=== PATIENT | male | born 1945 | race Caucasian/White ===

== ENCOUNTER 2017-03-11 14:46 | Inpatient (IN) | payer OTHER, MEDICARE ==
[~2017-03-11] VITALS: Ht 177.8 cm; Wt 108.0 kg
--- NOTE | ~2017-03-11 | EKG ---
[address] [address] ELECTROCARDIOGRAM REPORT Name: SRINIVASAN MEADFOREIGN Santos Room #: 211-P ADM IN M.R.#: [id number] Admission: 03/11/17 Attend Phys: Magdalena Vergara MD Discharge: Date of : 41 Report #: [id number] THIS REPORT FOR: //name// [facility] ED Test Date: 2017-03-11 Test Time: 14:46:31 Pat Name: NURYS MEAD Department: Room: 211 Gender: M Optometric Technician: JAVI : 1945 Requested By: Nikki Jimenez Order Number: [id number] MD: Carlos Eduardo Casiano Measurements Intervals [place] Rate: 121 P: HI: QRS: -54 QRSD: 92 T: 27 QT: 344 QTc: 488 Interpretive Statements Atrial fibrillation Abnormal R-wave progression, late transition Possible Inferior infarct, old No previous ECG available for comparison Electronically Signed On 03-12-2017 8:49:18 CDT by Carlos Eduardo Casiano [email or web address] <ELECTRONICALLY SIGNED> By: Carlos Eduardo Casiano MD, [facility] 03/12/17 0849 1446 1446 Carlos Eduardo Casiano MD, [facility] /EPI
--- NOTE | ~2017-03-11 | H ---
[facility] [place] [address] HISTORY AND PHYSICAL Name: NURYS MEAD Room #: 211-P [facility] IN ..#: [id number] Admission: 03/11/17 Attend Phys: Magdalena Vergara MD Discharge: 03/12/17 Date of : 41 Report #: [id number] THIS REPORT FOR: //name// CC: Sophy Vergara DATE OF SERVICE: 03/11/2017 CHIEF COMPLAINT: Shortness of breath. HISTORY OF PRESENT ILLNESS: The patient is a 72-year-old healthy man with no medical problems. He went to the clinic today to donate blood, where examination revealed irregular heartbeat. The patient was sent here for further evaluation. He was found to be in atrial fibrillation. The patient denies prior cardiac history. He denies palpitations. He states that he noticed increased tiredness lately. He denies chest pains. In the Emergency Room, the patient's evaluation showed atrial fibrillation. His electrolytes were normal. Coagulation profile was normal. CBC and TSH were also in the normal range. PAST MEDICAL HISTORY: None. MEDICATIONS: None. FAMILY HISTORY: Reviewed and not pertinent to the patient's current condition. SOCIAL HISTORY: The patient does not smoke cigarettes and does not drink alcohol. REVIEW OF SYSTEMS: As above in HPI section. All others negative. PHYSICAL EXAMINATION: GENERAL: The patient is a healthy-looking elderly man who looks younger than his actual age. VITAL SIGNS: Blood pressure is 155/91, from 171/68. Heart rate is in 90s, irregularly irregular. Earlier heart rate was 130. Respiration is 20, temperature is 97.6, oxygen saturation is 96-97%. HEENT: Pupils are equal. Eye movements are normal. Sclerae are anicteric. NECK: Supple. Thyromegaly is not palpated. The patient has no JVD. RESPIRATORY: Chest moves symmetrically with breathing. LUNGS: Clear to auscultation bilaterally. CARDIOVASCULAR: The patient has irregularly irregular heart rate. He has no murmurs, gallops or rubs. GASTROINTESTINAL: Abdomen is soft, nondistended and nontender. Bowel sounds are present. The patient has no hepatomegaly or splenomegaly. [address] [address] HISTORY AND PHYSICAL Name: NURYS MEAD Room #: [address] [place] [address]#: [id number] Admission: 03/11/17 Attend Phys: Magdalena Vergara MD Discharge: 03/12/17 Date of : 41 Report #: [id number] MUSCULOSKELETAL: The patient has no edema, cyanosis or clubbing. His range of motion is normal. NEUROLOGIC: The patient is alert and oriented x 3. His examination is nonfocal. SKIN: The patient does not have acute skin lesions. Skin is dry and warm. LABORATORY DATA: Basic metabolic profile is normal. CBC is normal. TSH is normal. Urinalysis is normal. Chest x-ray is negative for acute findings. EKG shows atrial fibrillation. ASSESSMENT AND PLAN: 1. Atrial fibrillation, new onset, and now rate controlled after the patient received IV metoprolol. I had detailed conversation with the patient regarding atrial fibrillation. He will be admitted to the hospital on telemetry unit. Metoprolol will be continued by mouth, as it is controlling heart rate. The patient will be started on anticoagulation. We will obtain cardiac echo in the morning, and we will consult monkey breeder. We are checking D-dimers. If elevated, the patient will be further evaluated with CT angiography of the chest to rule out PE. 2. Hypertension. The patient denies history of hypertension. Blood pressure will be monitored closely. 3. DVT prophylaxis. As noted, the patient will be started on therapeutic dose of anticoagulation with Lovenox until further instructed by monkey breeder. <ELECTRONICALLY SIGNED> By: Magdalena Vergara MD 03/16/17 2227 1740 1822 Magdalena Vergara MD /nt
--- NOTE | ~2017-03-11 | 2DMMODE ---
[address] [place] [address] [facility] [place] [address] 2 D/M-MODE ECHOCARDIOGRAM Name: ALYCENURYS L Room #: 211-P [facility] IN .R.#: [id number] Admission: 03/11/17 Attend Phys: Magdalena Vergara Discharge: Date of : 41 Date of Service: 03/12/17 1306 Report #: [id number] THIS REPORT FOR: //name// APPROVED REPORT Study performed: 03/12/2017 08:39:37 EXAM: Comprehensive 2D, Doppler, and color-flow Echocardiogram Patient Location: Bedside Room #: 211 Blood Pressure: 147/83 mmHg HR: 61 bpm Other Information Study Quality: Adequate Indications Dyspnea Atrial Fibrillation Hypertension/HDD 2D Dimensions RVDd: 40.41 mm LVEF(%): 55.29 (>50%) IVSd: 9.16 (7-11mm) LVOT Diam: 22.03 (18-24mm) LVDd: 56.90 mm PWd: 10.29 (7-11mm) Ascending Aorta: 30.85 mm LVDs: 40.30 (25-40mm) IVC: 25.00 mm Aortic Root: 32.32 mm Arauz's LVEF: 55.29 % Volumes Left Atrial Volume (Systole) Single Plane 4CH: 50.09 mL Single Plane 2CH: 49.87 mL LA ESV Index: 26.00 mL/m2 Aortic Valve AoV Peak Vinicius.: 1.17 m/s AO Peak Gr.: 5.44 mmHg LV Max P.58 mmHg LV Max: 0.95 m/s Mitral Valve E/A Ratio: 1.3 MV Decel. Time: 200.96 ms [facility] [address] [place] [address] 2 D/M-MODE ECHOCARDIOGRAM Name: NURYS MEAD Danielle Room #: [address] [place] [address]#: [id number] Admission: 03/11/17 Attend Phys: Magdalena Vergara Discharge: Date of : 41 Date of Service: 03/12/17 1306 Report #: [id number] E Max Vinicius.: 0.84 m/s MV A Vinicius.: 0.66 m/s MV PHT: 58.28 ms Pulmonary Valve PV Peak Vinicius.: 1.21 m/s PV Peak Gr.: 5.86 mmHg Pulmonary Vein P Vein S: 39.9 m/s P Vein D: 34.6 m/s P Vein A Dur.: 23.1 m/s PVa Duration: 92 Tricuspid Valve TR Peak Vinicius.: 2.34 m/s RAP Estimate: 10.00 mmHg TR Peak Gr.: 21.87 mmHg Left Ventricle Left ventricle is borderline dilated. There is normal LV segmental wall motion. There is normal left ventricular wall thickness. The left ventricular systolic function is normal. The left ventricular ejection fraction is within the normal range. LVEF is 55-60%. The left ventricular diastolic function is normal. Right Ventricle The right ventricle is normal size. The right ventricular systolic function is normal. Atria The left atrium size is normal. The right atrium size is normal. Aortic Valve Aortic valve is calcified. Mild aortic regurgitation. There is no aortic valvular stenosis. Mitral Valve The mitral valve is normal in structure. Mild mitral regurgitation. No evidence of mitral valve stenosis. Tricuspid Valve The tricuspid valve is normal in structure. There is mild tricuspid regurgitation. The right atrial pressure is estimated at 10 mmHg. There is no pulmonary hypertension. The estimated PAP was 32 [place] [address] 2 D/M-MODE ECHOCARDIOGRAM Name: NURYS MEAD Danielle Room #: 211-P [facility] IN ..#: [id number] Admission: 03/11/17 Attend Phys: Magdalena Vergara Discharge: Date of : 41 Date of Service: 03/12/17 1306 Report #: [id number] The pulmonary valve is normal in structure. There is no pulmonic valvular regurgitation. Great Vessels The aortic root is normal in size. IVC is dilated and collapses >50% with inspiration. Pericardium There is no pericardial effusion. <Conclusion> The left ventricular systolic function is normal. There is normal LV segmental wall motion. LVEF 55-60%. The left ventricular diastolic function is normal. Aortic valve is calcified. No stenosis. Mild aortic regurgitation. The mitral valve is normal in structure. Mild mitral regurgitation. Pulmonary artery pressure of 25mmHg. There is no pericardial effusion. <ELECTRONICALLY SIGNED> By: Carlos Eduardo Casiano MD, [facility] 03/12/17 1306 1306 1306 Carlos Eduardo Casiano MD, [facility] /INF
[2017-03-11 14:46] VITALS: BP 171/65
[2017-03-11 15:17] LABS: ABSOLUTE NEUTROPHILS 3.8 thou/uL (1.4-8.2); BASOPHILS 1.2 % (0.0-2.0); EOSINOPHILS 4.5 % (0.0-3.0); HEMATOCRIT 49.7 % (42.0-52.0); HEMOGLOBIN 16.8 gm/dL (14.0-18.0); LYMPHOCYTES 32.9 % (24.0-44.0); MCH 30.9 pg (26.0-34.0); MCHC 33.7 g/dL (28.0-37.0); MCV 91.7 fL (80.0-100.0); MONOCYTES 11.2 % (1.0-8.0); PLATELET COUNT 225 thou/uL (150-400); POLYS 50.2 % (36.0-66.0); RBC 5.42 mil/uL (4.50-6.00); RDW 14.8 % (10.5-14.5); WBC 7.6 thou/uL (4.0-11.0)
[2017-03-11 15:21] LABS: CALCIUM 8.2 mg/dL (8.5-10.1); CREATININE 0.9 mg/dL (0.7-1.3); POTASSIUM 4.2 mmol/L (3.5-5.1)
[2017-03-11 15:22] LABS: MANUAL DIFF NO
[2017-03-11 15:43] LABS: APTT 26.3 Seconds (24.5-32.8); PROTIME 10.8 Seconds (9.3-11.4)
[2017-03-11 16:20] LABS: URINE BILIRUBIN NEGATIVE (Negative); URINE BLOOD NEGATIVE (Negative); URINE COLOR YELLOW; URINE GLUCOSE-RANDOM* NEGATIVE (Negative); URINE KETONES NEGATIVE (Negative); URINE LEUKOCYTES-REFLEX NEGATIVE (Negative); URINE PROTEIN (DIPSTICK) NEGATIVE (Negative); URINE UROBILINOGEN 0.2 E.U./dl (0.2-1.0)
[2017-03-11 17:52] VITALS: BP 154/97
[2017-03-11 20:13] VITALS: BP 135/82
[2017-03-11 23:39] VITALS: BP 130/77
[2017-03-12 04:57] VITALS: BP 129/74
[2017-03-12 07:20] VITALS: BP 147/83
[2017-03-12] MEDS ORDERED: PRADAXA150 MG PO (09:21)
[2017-03-12] MEDS ORDERED: TOPROL XL25 MG PO (09:21)
[2017-03-12 11:24] VITALS: BP 140/74
[2017-03-12 12:05] VITALS: BP 140/74
== END 2017-03-12 13:30 | disposition home or self-care (01) | DRG 310 ==
LOC: ER 14:46 → EROBS 16:42 → 2N 16:42
PROVIDERS: Emergency Medicine
DX: I48.91 Unspecified atrial fibrillation (principal); I10 Essential (primary) hypertension; Z90.49 Acquired absence of other specified parts of digestive tract; Z87.442 Personal history of urinary calculi; Z87.891 Personal history of nicotine dependence
CPT/HCPCS: 10081

== ENCOUNTER 2017-04-22 09:27 | Inpatient (IN) | payer OTHER, MEDICARE ==
[2017-04-22] VITALS (16 sets, daily range): BP systolic 97–132; BP diastolic 46–86
[~2017-04-22] VITALS: Ht 177.8 cm; Wt 104.4 kg
--- NOTE | ~2017-04-22 | EKG ---
[address] [address] ELECTROCARDIOGRAM REPORT Name: ALYCE,NURYS Santos Room #: 247-P ADM IN M.R.#: [id number] Admission: 04/22/17 Attend Phys: Abel Zarate Discharge: Date of : 41 Report #: [id number] THIS REPORT FOR: //name// [facility] Test Date: 2017-04-23 Test Time: 04:53:30 Pat Name: NURYS MEAD Department: Room: 247 P Gender: M Paper Reeler: [email or web address] : 1945 Requested By: Abel Zarate Order Number: [id number] MD: Rocael Vitale Measurements Intervals [place] Rate: 160 P: FL: QRS: 65 QRSD: 100 T: 5 QT: 303 QTc: 495 Interpretive Statements Atrial fibrillation with rapid V-rate Extensive anterior infarct, old Compared to ECG 04/22/2017 19:38:50 Sinus rhythm no longer present Myocardial infarct finding still present Electronically Signed On 04-23-2017 20:42:36 CDT by Rocael Vitale [email or web address] <ELECTRONICALLY SIGNED> By: Rocael Vitale MD 04/23/17 2042 0453 0453 Rocael Vitale MD /EPI
--- NOTE | ~2017-04-22 | 2DMMODE ---
[facility] [address] [facility] [facility] [place] [address] 2 D/M-MODE ECHOCARDIOGRAM Name: NURYS MEAD Room #: 247-P [facility] IN ..#: [id number] Admission: 04/22/17 Attend Phys: Abel Oneill Discharge: Date of : 41 Date of Service: 04/25/17 1613 Report #: [id number] THIS REPORT FOR: //name// APPROVED REPORT Study performed: 04/25/2017 11:59:31 EXAM: Comprehensive 2D, Doppler, and color-flow Echocardiogram Patient Location: Bedside Room #: 247 Other Information Study Quality: Adequate Indications Atrial Fibrillation CAD Hypertension/HDD 2D Dimensions RVDd: 40.13 mm LVEF(%): 47.86 (>50%) IVSd: 14.01 (7-11mm) LVOT Diam: 19.88 (18-24mm) LVDd: 45.37 mm PWd: 13.20 (7-11mm) Ascending Ao: 33.07 (22-36mm) LVDs: 34.50 (25-40mm) Aortic Root: 34.34 mm Arauz's LVEF: 47.86 % Volumes Left Atrial Volume (Systole) Single Plane 4CH: 52.03 mL Single Plane 2CH: 35.77 mL LA ESV Index: 22.00 mL/m2 Aortic Valve AoV Peak Vinicius.: 1.33 m/s AO Peak Gr.: 7.03 mmHg LVOT Max P.83 mmHg LVOT Max V: 0.98 m/s JANINE Vmax: 2.29 cm2 Mitral Valve MV Decel. Time: 124.84 ms MV E Max Vinicius.: 0.95 m/s Pulmonary Valve [facility] [address] [address] 2 D/M-MODE ECHOCARDIOGRAM Name: NURYS MEAD Room #: [address] [place] [address] IN [facility]#: [id number] Admission: 04/22/17 Attend Phys: Abel Oneill Discharge: Date of : 41 Date of Service: 04/25/17 1613 Report #: [id number] PV Peak Vinicius.: 1.00 m/s PV Peak Gr.: 4.00 mmHg Tricuspid Valve TR Peak Vinicius.: 2.75 m/s RAP Estimate: 10.00 mmHg TR Peak Gr.: 30.15 mmHg Left Ventricle The left ventricle is normal size. Hypokinesis involving septum and anteroapex. Mild concentric left ventricular hypertrophy. Left ventricular systolic function is moderately decreased. LVEF is 40%. This study is not technically sufficient to allow evaluation of the LV diastolic function due to atrial fibrillation. Right Ventricle Right ventricle is borderline dilated. Right ventricle is mildly hypokinetic. Atria The left atrium size is normal. The right atrium size is normal. Aortic Valve The aortic valve is mildly sclerotic Mild aortic regurgitation. There is no aortic valvular stenosis. Mitral Valve Mild-moderate mitral annular calcification Trace to mild mitral regurgitation. No evidence of mitral valve stenosis. Tricuspid Valve The tricuspid valve is normal in structure. Mild to moderate tricuspid regurgitation. Pulmonic Valve Pulmonic valve is not well visualized. Great Vessels The aortic root is normal in size. IVC is not visualized due to post surgical dressings. Pericardium There is no pericardial effusion. <Conclusion> Left ventricular systolic function is moderately decreased. [facility] [address] [place] [address] 2 D/M-MODE ECHOCARDIOGRAM Name: NURYS MEAD Danielle Room #: 247-P [facility] IN M.R.#: [id number] Admission: 04/22/17 Attend Phys: Abel Oneill Discharge: Date of : 41 Date of Service: 04/25/171612 Report #: [id number] Hypokinesis involving septum and anteroapex. LVEF 40%. The aortic valve is mildly sclerotic. No stenosis. mild aortic regurgitation. Mild-moderate mitral annular calcification Trace to mild mitral regurgitation. Pulmonary artery pressure of 35mmHg There is no pericardial effusion. <ELECTRONICALLY SIGNED> By: Carlos Eduardo Casiano MD, [facility] 04/25/171612 12 1613 Carlos Eduardo Casiano MD, [facility]ACC /INF
--- NOTE | ~2017-04-22 | HC ---
[facility] [place] [address] CONSULTATION Name: NURYS MEAD Room #: 211-P [facility] IN M.R.#: [id number] Admission: 04/22/17 Attend Phys: Abel Zarate Discharge: Date of : 41 Report #: [id number] THIS REPORT FOR: //name// CC: Abel Chua DATE OF SERVICE: 04/24/2017 PULMONARY CONSULTATION REASON FOR PULMONARY CONSULTATION: Hypoxemia. CHIEF COMPLAINT: Chest pain. HISTORY OF PRESENT ILLNESS: Our group was asked to see the patient in consultation while hospitalized at [facility]. A pleasant 72-year-old male without any past pulmonary history, admitted for evaluation of coronary artery disease, who was unable to stent the LAD lesion and underwent single-vessel coronary artery bypass grafting. Postoperatively, he has had some difficulty with ongoing hypoxemia and shortness of breath and some difficulty getting up and out of bed. No significant cough or sputum production at this time. Denies any illness prior to this admission. He is having some difficulty even pulling 1000 mL on his incentive spirometry. ALLERGIES: None known. PAST MEDICAL HISTORY: 1. Recently diagnosed atrial fibrillation. 2. Coronary artery disease. 3. Hypertension. 4. Hyperlipidemia. 5. History of nephrolithiasis. SOCIAL HISTORY: Currently, nonsmoker. No alcohol consumption. Retired. FAMILY HISTORY: Negative for significant pulmonary disease. REVIEW OF SYSTEMS: Difficult to obtain due to somnolence. GENERAL: Denies any fevers, chills, sweats or change in weight. ENT: No upper respiratory congestion, rhinorrhea or dysphagia. CARDIOVASCULAR: As described in the HPI. GASTROINTESTINAL: No nausea or vomiting. GENITOURINARY: No dysuria, no frequency. INTEGUMENT: Denies any rash. MUSCULOSKELETAL: Some generalized weakness. No significant arthritis [facility] [address] [place] [address] CONSULTATION Name: ALYCENURYS L Room #: 211-P [facility]#: [id number] Admission: 04/22/17 Attend Phys: Abel Zarate Discharge: Date of : 41 Report #: [id number] complaints. PHYSICAL EXAMINATION: VITAL SIGNS: Afebrile. Pulse 80s, respiratory rate 20, blood pressure 135/67 and oxygen saturation 92% on 50% face mask and 6 liters nasal cannula. GENERAL: This is a pleasant elderly male, in no distress, appears to be resting comfortably. HEENT: Clear oropharynx. NECK: Supple. No lymphadenopathy. Right IJ triple-lumen introducer noted. LUNGS: Markedly diminished in the bases, with some inspiratory crackles. No wheezes. CARDIOVASCULAR: Heart is regular. No murmurs noted. ABDOMEN: Soft, nontender. No masses. Mediastinal tubes noted to be in place. EXTREMITIES: With only trace edema. LABORATORY DATA: White blood cell count was 21,000, hemoglobin 10, hematocrit 29 and platelet count 116,000. Sodium is 136, potassium 4.4, chloride 104, bicarbonate 28, BUN 30, creatinine 1.7 and glucose 143. IMPRESSION: 1. Status post single-vessel coronary artery bypass grafting. 2. Postoperative hypoxemic respiratory failure, somewhat expected of a low outer portion, though I would expect this postoperatively. Chest radiograph suggest some atelectasis and may be some mild pulmonary edema. 3. Atrial fibrillation. 4. History of hypertension. SUGGESTIONS: 1. Encourage incentive spirometry. 2. EzPAP. 3. Follow up chest radiographs. 4. Some trial of diuresis. 5. We will follow up chest x-rays. 6. Titrate FiO2. 7. Bronchodilators. 8. Ambulate as tolerated, encourage physical and occupational therapy. 9. Additional recommendations to follow. Thank you for requesting our suggestions. <ELECTRONICALLY SIGNED> By: Fabiano Shanks MD 04/30/17 1133 1609 1133 Fabiano Shanks MD /nt
--- NOTE | ~2017-04-22 | HC ---
[facility] [place] [address] CONSULTATION Name: NURYS MEAD Room #: 211-P [facility] IN ..#: [id number] Admission: 04/22/17 Attend Phys: Abel Zarate Discharge: 05/01/17 Date of : 41 Report #: [id number] THIS REPORT FOR: //name// CC: Abel Gradyie Toma DATE OF SERVICE: 04/28/2017 HISTORY OF PRESENT ILLNESS: The patient is a 72-year-old white male who was admitted with chest pain, who was noted to have coronary artery disease and underwent emergent coronary artery bypass grafting x 1 with HA to LAD on 04/22/2017. Postoperatively, he has had problems with hypoxic respiratory failure. He has atrial fibrillation, ischemic cardiomyopathy, pneumonia. He is continuing in the intensive care unit. He is still on high dose oxygen needing 10 liters currently including rest and with exercise in therapy. We are seeing him in rehabilitation medicine consultation. PAST MEDICAL HISTORY: Includes hypertension. He has coronary artery disease, hyperlipidemia, history of nephrolithiasis. MEDICATIONS: Please see the full medication listing. FAMILY HISTORY: Noncontributory. SOCIAL HISTORY: House, alone. Did not utilize gait aids, 2 steps in, was premorbidly independent without ADLs. There are 10-12 steps with laundry. ALLERGIES: No known drug allergies. HABITS: Nonsmoker, no history of ETOH abuse. REVIEW OF SYSTEMS: No current complaints of chest pain, shortness of breath or abdominal discomfort. He does become short of breath with limited activity. He has significant complaints of decreased endurance. No focal extremity pain complaints. Premorbidly had been very active, doing yardwork, going to baseball games, etc. PHYSICAL EXAMINATION: He is a 72-year-old white male seen in the Intensive Care Unit. Last recorded temperature 98.2, pulse 85, respirations 19, blood pressure 136/91. He is sleepy, but easily arouses. Facies appeared symmetric. Nasal prong O2 at 10 liters. Midline sternal incision, which is dressed. Functional range of motion of the upper extremities with gentle testing appearing to be at least grade 4-/5. DTRs are trace to 1. Lower extremities, no focal calf swelling, trace to 1 lower extremity distal edema. Tone appeared to be intact. Strength is a grade 3+/5. Transfers were contact guard. He did ambulate [address] [address] CONSULTATION Name: SRINIVASAN MEADFOREIGN Santos Room #: 211-P [facility] IN [facility]#: [id number] Admission: 04/22/17 Attend Phys: Abel Zarate Discharge: 05/01/17 Date of : 41 Report #: [id number] feet min assist with a front-wheeled walker. ASSESSMENT: A 72-year-old white male with the following problem list: 1. Medical complexity with generalized debilitation. 2. Pulmonary rehabilitation. 3. Chest pain with coronary artery disease status post emergent coronary artery bypass grafting x 1. 4. Atrial fibrillation. 5. Ischemic cardiomyopathy. 6. Pulmonary infiltrates with pneumonia, gradually improving. 7. Atrial fibrillation with conversion to normal sinus rhythm. 8. Hyperlipidemia. 9. Hypertension. 10. History of kidney stones. PLAN: He certainly may benefit from an acute in-hospital inpatient rehabilitation stay. At this point, we are going to follow along with you regarding his rehab therapy needs. Thank you for asking us to assist in this patient's care. <ELECTRONICALLY SIGNED> By: Adolfo Wise MD 05/05/17 1518 1642 15 Adolfo Wise MD /nt
--- NOTE | ~2017-04-22 | EKG ---
[address] [address] ELECTROCARDIOGRAM REPORT Name: NURYS MEAD Room #: 247-P ADM IN M.R.#: [id number] Admission: 04/22/17 Attend Phys: Abel Zarate Discharge: Date of : 41 Report #: [id number] THIS REPORT FOR: //name// [facility] Test Date: 2017-04-22 Test Time: 10:09:59 Pat Name: NURYS MEAD Department: Room: [facility] Gender: M Supervisor Transferring And Boxing: Marcus MAHAJAN : 1945 Requested By: Abel Zarate Order Number: [id number] MD: Carlos Eduardo Casiano Measurements Intervals [place] Rate: 59 P: 62 ME: 181 QRS: -40 QRSD: 99 T: 28 QT: 465 QTc: 461 Interpretive Statements Sinus rhythm Normal tracing Compared to ECG 03/11/2017 14:46:31 Atrial fibrillation no longer present Electronically Signed On 04-23-2017 7:13:48 CDT by Carlos Eduardo Casiano [email or web address] <ELECTRONICALLY SIGNED> By: Carlos Eduardo Casiano MD, [facility] 04/23/17 0713 1009 1009 Carlos Eduardo Casiano MD, [facility] /EPI
--- NOTE | ~2017-04-22 | EKG ---
[address] [address] ELECTROCARDIOGRAM REPORT Name: NURYS MEAD Room #: 247- ADM IN M.R.#: [id number] Admission: 04/22/17 Attend Phys: Abel Zarate Discharge: Date of : 41 Report #: [id number] THIS REPORT FOR: //name// [facility] Test Date: 2017-04-22 Test Time: 19:38:50 Pat Name: NURYS MEAD Department: Room: 247 Gender: M Cabinet Builder: Ro RENO : 1945 Requested By: Kwan Sahu Order Number: [id number] MD: Carlos Eduardo Casiano Measurements Intervals [place] Rate: 87 P: 60 SD: 166 QRS: -65 QRSD: 92 T: 37 QT: 398 QTc: 479 Interpretive Statements Sinus rhythm Probable left atrial enlargement Inferior infarct, old Anterior infarct, old Compared to ECG 03/11/2017 14:46:31 Criteria for infarct now present Electronically Signed On 04-23-2017 7:23:39 CDT by Carlos Eduardo Casiano [email or web address] <ELECTRONICALLY SIGNED> By: Carlos Eduardo Casiano MD, [facility] 04/23/17 0723 193 37 Carlos Eduardo Casiano MD, [facility] /EPI
--- NOTE | ~2017-04-22 | EKG ---
[address] [address] ELECTROCARDIOGRAM REPORT Name: NURYS MEAD Room #: 247- ADM IN M.R.#: [id number] Admission: 04/22/17 Attend Phys: Abel Zarate Discharge: Date of : 41 Report #: [id number] THIS REPORT FOR: //name// [facility] Test Date: 2017-04-23 Test Time: 07:22:47 Pat Name: NURYS MEAD Department: Room: 247 Gender: M Monitoring Specialist: umer : 1945 Requested By: Kwan Sahu Order Number: [id number] MD: Rocael Vitale Measurements Intervals [place] Rate: 69 P: 54 IN: 155 QRS: -13 QRSD: 89 T: 50 QT: 463 QTc: 496 Interpretive Statements Sinus rhythm Anterior infarct, recent Minimal ST elevation, inferior leads Lateral leads are also involved Compared to ECG 04/22/2017 19:38:50 ST (T wave) deviation now present Myocardial infarct finding still present Electronically Signed On 04-23-2017 20:43:46 CDT by Rocael Vitale [email or web address] <ELECTRONICALLY SIGNED> By: Rocael Vitale MD 04/23/17 2043 1 1 Rocael Vitale MD /EPI
--- NOTE | ~2017-04-22 | H ---
[facility] [place] [address] HISTORY AND PHYSICAL Name: NURYS MEAD Room #: REG Hina Wood#: [id number] Admission: 04/22/17 Attend Phys: Abel Zarate Discharge: Date of : 41 Report #: [id number] THIS REPORT FOR: //name// CC: Abel Chua HISTORY OF PRESENT ILLNESS: This is a very pleasant gentleman who was seen in the last week for exertional chest discomfort. The patient does have a history atrial arrhythmia and had done well until recently, when he developed substernal discomfort with activity and exertion. This was reproducible with exertion and not reproducible with palpation. In view of this, he was recommended to proceed with cardiac catheterization. PHYSICAL EXAMINATION: GENERAL: Well-developed, well-nourished white male, resting comfortably, in no acute distress. HEENT: Normocephalic, atraumatic. Pupils are equal, round, reactive to light and accommodation. Extraocular muscles are intact. Sclerae and conjunctivae are anicteric. NECK: JVD is normal. Carotid upstrokes are bilaterally symmetrical. No bruits are heard. No thyromegaly. No lymphadenopathy. LUNGS: Clear to auscultation. No wheezes, rhonchi or crackles. No CVA tenderness. CARDIAC: Demonstrates a regular rhythm. Normal first and second heart sounds. No ventricular or atrial gallops, no rubs noted. No murmurs. No lifts or heaves, PMI normal. ABDOMEN: Soft, nontender, nondistended. Normal bowel sounds. EXTREMITIES: Without cyanosis, clubbing or edema. Distal pulses are intact. DTR symmetrical. NEUROLOGIC: Cranial nerves 2-12 are grossly normal and symmetrical. PSYCHIATRIC: Alert, oriented with normal affect. SKIN: Warm and dry. The remainder of the history and physical can be obtained in the office note from last week. IMPRESSION: Exertional chest discomfort in an individual who has significant risk factors and has normal evaluation. We will proceed directly to angiography to give any aid to ischemic burden and coronary anatomy to optimize prognosis, determine risk and establish a long-term medical regimen or revascularization strategies. <ELECTRONICALLY SIGNED> By: Abel Zarate MD 04/22/17 1718 1129 1223 Abel Zarate MD /nt
--- NOTE | ~2017-04-22 | O ---
[facility] [place] [address] OPERATIVE REPORT Name: NURYS MEAD Room #: 211-P [facility] IN .R.#: [id number] Admission: 04/22/17 Attend Phys: Abel Zarate Discharge: 05/01/17 Date of : 41 Report #: [id number] THIS REPORT FOR: //name// CC: Abel Chua DATE OF SERVICE: 04/22/2017 PREOPERATIVE DIAGNOSIS: Coronary artery disease. POSTOPERATIVE DIAGNOSIS: Coronary artery disease. OPERATION: Emergency coronary artery bypass x1 (left internal mammary artery to left anterior descending artery). SURGEON: Favian Cunha M.D. TAILINGS DAM LABORER: Luis Alberto. ANESTHESIA: General. 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 We were called emergently to see and treat the patient by Dr. Zarate. The patient had occlusion of the LAD and wire was keeping it somewhat patent. FINDINGS AND TECHNIQUE: After general anesthesia was established, exposure was obtained through median sternotomy. Left internal mammary artery was harvested. Pericardial well was made. Cannulation sutures were placed. Heparin was given. Aorta was cannulated. Right atrium was cannulated. Cardioplegia needle was positioned in the aortic root. Retrograde cardioplegic catheter was placed in coronary sinus. Cardiopulmonary bypass was established. The aorta was cross clamped. Antegrade and retrograde cardioplegia were given. Ice was poured in the pericardial well. The heart was stopped. During electromechanical arrest, the distal anastomoses were performed and end-to-side anastomosis was made between LAD and the left anterior descending artery. This was tested with the temperature technique. Cold cardioplegia was given. During the anastomosis and then at the end, warm cardioplegia was given followed by warm continuous blood to the coronary sinus. When this infusion was complete, crossclamp was removed, de-airing maneuvers were performed. The anastomosis was inspected, made satisfactory. As the patient warmed, nice cardiac activity resumed, chest tubes and pacing wires were placed. [facility] [address] [place] [address] OPERATIVE REPORT Name: ALYCENURYS L Room #: 211-P [facility]#: [id number] Admission: 04/22/17 Attend Phys: Abel Zarate Discharge: 05/01/17 Date of : 41 Report #: [id number] When the patient was warmed, he was weaned from cardiopulmonary bypass. Venous cannula was removed. Protamine was given, the aortic cannula was removed. Good Doppler signal was audible in the internal mammary artery. Total cross clamp time 36 minutes. Total pump time was 69 minutes. When hemostasis was satisfactory, chest was irrigated with antibiotic solution and closed in the usual fashion. The patient was taken to the intensive care unit in good condition having tolerated the procedure well. All counts reported as correct. It should be noted that the left anterior descending was a much more diseased vessel in reality than it had appeared on the catheterization and I suspect this is responsible for the problem the patient had. <ELECTRONICALLY SIGNED> By: Favian Cunha MD 05/05/17 1325 0746 0919 Favian Cunha MD /nt
--- NOTE | ~2017-04-22 | 2DMMODE ---
[facility] [place] [address] 2 D/M-MODE ECHOCARDIOGRAM Name: ALYCENURYS L Room #: 211-P [facility] IN .R.#: [id number] Admission: 04/22/17 Attend Phys: Abel Oneill Discharge: Date of : 41 Date of Service: 04/30/17 1041 Report #: [id number] THIS REPORT FOR: //name// APPROVED REPORT Study performed: 04/30/2017 09:25:34 EXAM: Limited 2D Echocardiogram Patient Location: Bedside Room #: 211 Other Information Study Quality: Adequate Indications LV Function:Systolic 2D Dimensions LVEF(%): 55.55 (>50%) IVSd: 12.14 (7-11mm) LVDd: 43.50 mm PWd: 11.53 (7-11mm) LVDs: 31.01 (25-40mm) Arauz's LVEF: 55.55 % Volumes Left Atrial Volume (Systole) Single Plane 4CH: 43.64 mL Single Plane 2CH: 37.92 mL LA ESV Index: 20.00 mL/m2 Left Ventricle The left ventricle is normal size. Regional wall motion abnormalities are noted. Mild concentric left ventricular hypertrophy. Left ventricular systolic function is moderately decreased. LVEF is 40%. Right Ventricle The right ventricle is normal size. Atria The left atrium size is normal. Pericardium There is no pericardial effusion. There is no pleural effusion. [facility] [address] [place] [address] 2 D/M-MODE ECHOCARDIOGRAM Name: NURYS MEAD Room #: 211-P ADM IN M.R.#: [id number] Admission: 04/22/17 Attend Phys: Abel Oneill Discharge: Date of : 41 Date of Service: 04/30/17 1041 Report #: [id number] <Conclusion> The left ventricle is normal size. Left ventricular systolic function is moderately decreased. The left atrium size is normal. The right ventricle is normal size. There is no pericardial effusion. <ELECTRONICALLY SIGNED> By: Carl Murray MD 04/30/17 1041 40 40 Carl Murray MD /INF
--- NOTE | ~2017-04-22 | EKG ---
[address] [address] ELECTROCARDIOGRAM REPORT Name: ALYCE,NURYS L Room #: 247- ADM IN M.R.#: [id number] Admission: 04/22/17 Attend Phys: Abel Zarate Discharge: Date of : 41 Report #: [id number] THIS REPORT FOR: //name// [facility] Test Date: 2017-04-26 Test Time: 07:11:21 Pat Name: NURYS MEAD Department: Room: [facility] Gender: M Business Applications Specialist: raheel : 1945 Requested By: Kwan Sahu Order Number: [id number] MD: Rocael Vitale Measurements Intervals [place] Rate: 113 P: 116 ME: 112 QRS: -27 QRSD: 92 T: 57 QT: 393 QTc: 539 Interpretive Statements Atrial flutter, typical Electronically Signed On 04-26-2017 20:23:48 CDT by Rocael Vitale [email or web address] <ELECTRONICALLY SIGNED> By: Rocael iVtale MD 04/26/172022 0 07 Rocael Vitale MD /ZOLTAN
[~2017-04-22 09:27] MED LIST: PRADAXA150 MG PO; TOPROL XL25 MG PO
[2017-04-22 09:58] LABS: HEMATOCRIT 45.2 % (42.0-52.0); HEMOGLOBIN 15.4 gm/dL (14.0-18.0); MCH 32.1 pg (26.0-34.0); MCV 94.5 fL (80.0-100.0); RBC 4.79 mil/uL (4.50-6.00); RDW 14.9 % (10.5-14.5); WBC 6.7 thou/uL (4.0-11.0)
[2017-04-22 10:07] LABS: CALCIUM 8.3 mg/dL (8.5-10.1); CREATININE 0.9 mg/dL (0.7-1.3); POTASSIUM 4.2 mmol/L (3.5-5.1)
[2017-04-22 17:48] LABS: HEMATOCRIT 33.7 % (42.0-52.0); MCH 32.7 pg (26.0-34.0); MCHC 34.5 g/dL (28.0-37.0); MCV 94.7 fL (80.0-100.0); RBC 3.56 mil/uL (4.50-6.00); RDW 14.7 % (10.5-14.5); WBC 16.9 thou/uL (4.0-11.0)
[2017-04-22 17:49] LABS: HEMOGLOBIN 11.6 gm/dL (14.0-18.0)
[2017-04-22 18:07] LABS: APTT 31.5 Seconds (24.5-32.8); FIBRINOGEN 136.4 mg/dL (210-360); INR 1.4; PROTIME 14.9 Seconds (9.3-11.4)
[2017-04-22 18:37] LABS: POC BE -3 mmol/L (-2.0 to +3.0); POC CA IONIZED 4.2 mg/dL (4.5-5.3); POC FiO2 100 %; POC GLUCOSE 136 mg/dL (70-99); POC HCO3 21.8 mmol/L (22.0-26.0); POC HEMOGLOBIN 13.3 g/dL (14.0-18.0); POC POTASSIUM 5.2 mmol/L (3.5-5.1); POC SODIUM 136 mmol/L (136-145); POC pCO2 36.9 mmHg (35.0-45.0); POC pH 7.379 (7.360-7.450)
[2017-04-22 18:37] LABS: POC BE -4 mmol/L (-2.0 to +3.0); POC CA IONIZED 4.4 mg/dL (4.5-5.3); POC FiO2 100 %; POC GLUCOSE 118 mg/dL (70-99); POC HCO3 22.1 mmol/L (22.0-26.0); POC HEMOGLOBIN 13.3 g/dL (14.0-18.0); POC POTASSIUM 4.2 mmol/L (3.5-5.1); POC SODIUM 137 mmol/L (136-145); POC pCO2 44.6 mmHg (35.0-45.0); POC pH 7.303 (7.360-7.450)
[2017-04-22 18:37] LABS: POC BE -5 mmol/L (-2.0 to +3.0); POC CA IONIZED 4.1 mg/dL (4.5-5.3); POC FiO2 100 %; POC GLUCOSE 166 mg/dL (70-99); POC HCO3 21.7 mmol/L (22.0-26.0); POC HEMOGLOBIN 12.2 g/dL (14.0-18.0); POC SODIUM 136 mmol/L (136-145); POC pCO2 47.2 mmHg (35.0-45.0); POC pH 7.271 (7.360-7.450)
[2017-04-22 18:37] LABS: POC BE 0 mmol/L (-2.0 to +3.0); POC CA IONIZED 3.8 mg/dL (4.5-5.3); POC FiO2 100 %; POC GLUCOSE 163 mg/dL (70-99); POC HCO3 25.4 mmol/L (22.0-26.0); POC HEMOGLOBIN 10.9 g/dL (14.0-18.0); POC SODIUM 135 mmol/L (136-145); POC pCO2 45.3 mmHg (35.0-45.0); POC pH 7.356 (7.360-7.450)
[2017-04-22 18:37] LABS: POC BE -5 mmol/L (-2.0 to +3.0); POC CA IONIZED 4.4 mg/dL (4.5-5.3); POC FiO2 100 %; POC GLUCOSE 141 mg/dL (70-99); POC HCO3 21.2 mmol/L (22.0-26.0); POC HEMOGLOBIN 12.9 g/dL (14.0-18.0); POC POTASSIUM 4.4 mmol/L (3.5-5.1); POC SODIUM 137 mmol/L (136-145); POC pCO2 40.5 mmHg (35.0-45.0); POC pH 7.326 (7.360-7.450)
[2017-04-22 18:37] LABS: POC BE -3 mmol/L (-2.0 to +3.0); POC CA IONIZED 4.6 mg/dL (4.5-5.3); POC FiO2 100 %; POC GLUCOSE 155 mg/dL (70-99); POC HCO3 22.1 mmol/L (22.0-26.0); POC HEMOGLOBIN 10.5 g/dL (14.0-18.0); POC POTASSIUM 4.5 mmol/L (3.5-5.1); POC SODIUM 135 mmol/L (136-145); POC pCO2 39.3 mmHg (35.0-45.0); POC pH 7.358 (7.360-7.450)
[2017-04-22 19:14] LABS: HEMATOCRIT 41.8 % (42.0-52.0); MCH 31.7 pg (26.0-34.0); MCHC 33.9 g/dL (28.0-37.0); MCV 93.6 fL (80.0-100.0); RBC 4.47 mil/uL (4.50-6.00); RDW 14.8 % (10.5-14.5); WBC 20.1 thou/uL (4.0-11.0)
[2017-04-22 19:18] LABS: HEMOGLOBIN 14.2 gm/dL (14.0-18.0)
[2017-04-22 19:23] LABS: CALCIUM 7.4 mg/dL (8.5-10.1); CREATININE 1.1 mg/dL (0.7-1.3); POTASSIUM 4.6 mmol/L (3.5-5.1)
[2017-04-22 19:33] LABS: ABG SAMPLE TYPE ARTERIAL; BE(vivo) -8.5 mmol/L (-2 to +3); HCO3 17.9 mmol/L (22.0-26.0); LACTATE 3.09 mmol/L (0.5-2.0); O2(CT) 20.1 mL/dL (15.0-23.0); O2Hb 95.9 % (92.0-98.0); PCO2 40.3 mmHg (35.0-45.0); PO2 103.8 mmHg (80.0-100.0); tCO2 19.2 mmol/L (24.0-30.0)
[2017-04-22 19:34] LABS: ABG COMMENT POST-OP/AC MODE; STICK SITE LINE; TIDAL VOLUME 650 ml; pH 7.266 (7.360-7.450)
[2017-04-22 21:17] LABS: APTT 29.5 Seconds (24.5-32.8); FIBRINOGEN 148.7 mg/dL (210-360); INR 1.2; PROTIME 12.6 Seconds (9.3-11.4)
[2017-04-22 22:26] LABS: ABG COMMENT CPAP TRIAL; ABG SAMPLE TYPE ARTERIAL; BE(vivo) -9.7 mmol/L (-2 to +3); HCO3 15.7 mmol/L (22.0-26.0); LACTATE 5.65 mmol/L (0.5-2.0); O2(CT) 19.2 mL/dL (15.0-23.0); O2Hb 97.4 % (92.0-98.0); PCO2 33.1 mmHg (35.0-45.0); Pressure Support 8 cm H20; STICK SITE LINE; TIDAL VOLUME 680 ml; pH 7.293 (7.360-7.450); sO2 98.8 % (92.0-98.0); tCO2 16.7 mmol/L (24.0-30.0)
[2017-04-22 23:16] LABS: ABG SAMPLE TYPE ARTERIAL; BE(vivo) -9.4 mmol/L (-2 to +3); HCO3 15.5 mmol/L (22.0-26.0); O2(CT) 17.9 mL/dL (15.0-23.0); O2Hb 95.8 % (92.0-98.0); PCO2 30.9 mmHg (35.0-45.0); PO2 100.6 mmHg (80.0-100.0); sO2 97.2 % (92.0-98.0); tCO2 16.4 mmol/L (24.0-30.0)
[2017-04-22 23:17] LABS: LACTATE 5.81 mmol/L (0.5-2.0); STICK SITE LINE; pH 7.317 (7.360-7.450)
[2017-04-22 23:18] LABS: ABG COMMENT POST EXTUBATION
[2017-04-23] VITALS (21 sets, daily range): BP systolic 111–146; BP diastolic 49–66
[2017-04-23 04:38] LABS: HEMATOCRIT 33.9 % (42.0-52.0); MCH 31.9 pg (26.0-34.0); MCHC 33.8 g/dL (28.0-37.0); MCV 94.4 fL (80.0-100.0); RBC 3.59 mil/uL (4.50-6.00); RDW 14.6 % (10.5-14.5); WBC 15.7 thou/uL (4.0-11.0)
[2017-04-23 04:53] LABS: HEMOGLOBIN 11.5 gm/dL (14.0-18.0)
[2017-04-23 05:13] LABS: CALCIUM 7.8 mg/dL (8.5-10.1); CREATININE 1.6 mg/dL (0.7-1.3)
[2017-04-23 06:29] LABS: ABG SAMPLE TYPE ARTERIAL; BE(vivo) -11.5 mmol/L (-2 to +3); HCO3 13.7 mmol/L (22.0-26.0); O2(CT) 13.8 mL/dL (15.0-23.0); O2Hb 91.2 % (92.0-98.0); PCO2 28.7 mmHg (35.0-45.0); PO2 70.5 mmHg (80.0-100.0); pH 7.296 (7.360-7.450); sO2 92.8 % (92.0-98.0); tCO2 14.6 mmol/L (24.0-30.0)
[2017-04-23 06:30] LABS: STICK SITE LINE
[2017-04-23 09:05] LABS: ABG SAMPLE TYPE ARTERIAL; BE(vivo) -2.9 mmol/L (-2 to +3); HCO3 21.4 mmol/L (22.0-26.0); O2(CT) 15.4 mL/dL (15.0-23.0); O2Hb 95.2 % (92.0-98.0); PCO2 35.4 mmHg (35.0-45.0); PO2 84.4 mmHg (80.0-100.0); pH 7.399 (7.360-7.450); sO2 96.4 % (92.0-98.0); tCO2 22.5 mmol/L (24.0-30.0)
[2017-04-23 09:50] LABS: LACTATE 3.84 mmol/L (0.5-2.0); STICK SITE ALINE
[2017-04-23 10:13] LABS: CALCIUM 7.5 mg/dL (8.5-10.1); CREATININE 1.3 mg/dL (0.7-1.3); MAGNESIUM 2.3 mg/dL (1.8-2.4)
[2017-04-23 17:21] LABS: ABG SAMPLE TYPE ARTERIAL; BE(vivo) -6.1 mmol/L (-2 to +3); HCO3 17.8 mmol/L (22.0-26.0); LACTATE 2.73 mmol/L (0.5-2.0); O2(CT) 14.4 mL/dL (15.0-23.0); O2Hb 88.2 % (92.0-98.0); PO2 59.4 mmHg (80.0-100.0); tCO2 18.7 mmol/L (24.0-30.0)
[2017-04-23 17:22] LABS: STICK SITE ALINE
[2017-04-24 05:23] LABS: HEMATOCRIT 29.3 % (42.0-52.0); HEMOGLOBIN 10.2 gm/dL (14.0-18.0); MCH 32.7 pg (26.0-34.0); MCHC 34.7 g/dL (28.0-37.0); MCV 94.2 fL (80.0-100.0); RBC 3.11 mil/uL (4.50-6.00); RDW 15.1 % (10.5-14.5)
[2017-04-24 05:34] LABS: ALBUMIN 3.1 g/dL (3.4-5.0); CALCIUM 7.2 mg/dL (8.5-10.1); CREATININE 1.7 mg/dL (0.7-1.3); POTASSIUM 4.4 mmol/L (3.5-5.1); TOTAL BILIRUBIN 1.6 mg/dL (<0.1-1.0); TOTAL PROTEIN 5.4 g/dL (6.4-8.2)
[2017-04-25] VITALS (15 sets, daily range): BP systolic 113–144; BP diastolic 63–78
[2017-04-25 12:07] LABS: HEMATOCRIT 28.6 % (42.0-52.0); HEMOGLOBIN 9.9 gm/dL (14.0-18.0); MCHC 34.7 g/dL (28.0-37.0); RBC 3.01 mil/uL (4.50-6.00); RDW 15.1 % (10.5-14.5)
[2017-04-25 12:16] LABS: CREATININE 1.4 mg/dL (0.7-1.3); POTASSIUM 4.4 mmol/L (3.5-5.1)
[2017-04-25 12:30] LABS: APTT 27.6 Seconds (24.5-32.8); INR 1.1; PROTIME 11.2 Seconds (9.3-11.4)
[2017-04-26] VITALS (29 sets, daily range): BP systolic 112–154; BP diastolic 60–90
[2017-04-26 05:08] LABS: HEMATOCRIT 28.5 % (42.0-52.0); HEMOGLOBIN 9.8 gm/dL (14.0-18.0); MCH 32.9 pg (26.0-34.0); MCHC 34.4 g/dL (28.0-37.0); MCV 95.6 fL (80.0-100.0); RBC 2.98 mil/uL (4.50-6.00); RDW 14.9 % (10.5-14.5)
[2017-04-26 05:30] LABS: CALCIUM 7.8 mg/dL (8.5-10.1); CREATININE 1.2 mg/dL (0.7-1.3); POTASSIUM 4.1 mmol/L (3.5-5.1)
[2017-04-27] VITALS (18 sets, daily range): BP systolic 78–166; BP diastolic 55–87
[2017-04-27 09:17] LABS: MCH 32.8 pg (26.0-34.0); MCHC 34.3 g/dL (28.0-37.0); MCV 95.7 fL (80.0-100.0); RBC 3.03 mil/uL (4.50-6.00); RDW 14.9 % (10.5-14.5); WBC 17.9 thou/uL (4.0-11.0)
[2017-04-27 09:25] LABS: CREATININE 1.1 mg/dL (0.7-1.3)
[2017-04-28] VITALS (24 sets, daily range): BP systolic 85–148; BP diastolic 45–91
[2017-04-28 04:49] LABS: HEMATOCRIT 27.7 % (42.0-52.0); HEMOGLOBIN 9.4 gm/dL (14.0-18.0); MCH 32.5 pg (26.0-34.0); MCHC 33.8 g/dL (28.0-37.0); MCV 96.1 fL (80.0-100.0); RBC 2.89 mil/uL (4.50-6.00); RDW 15.2 % (10.5-14.5); WBC 14.7 thou/uL (4.0-11.0)
[2017-04-28 06:12] LABS: GLYCOHEMOGLOBIN (HGB A1C) 5.6 % (4.8-5.6)
[2017-04-28 13:35] LABS: CALCIUM 7.9 mg/dL (8.5-10.1); POTASSIUM 3.9 mmol/L (3.5-5.1)
[2017-04-29] VITALS (13 sets, daily range): BP systolic 113–132; BP diastolic 61–80
[2017-04-29 05:24] LABS: HEMATOCRIT 28.5 % (42.0-52.0); HEMOGLOBIN 9.7 gm/dL (14.0-18.0); MCH 32.7 pg (26.0-34.0); MCHC 34.1 g/dL (28.0-37.0); MCV 95.7 fL (80.0-100.0); RBC 2.98 mil/uL (4.50-6.00); RDW 15.2 % (10.5-14.5); WBC 13.3 thou/uL (4.0-11.0)
[2017-04-29 12:04] LABS: CALCIUM 7.7 mg/dL (8.5-10.1); CREATININE 1.1 mg/dL (0.7-1.3); MAGNESIUM 1.9 mg/dL (1.8-2.4); POTASSIUM 3.3 mmol/L (3.5-5.1)
[2017-04-30 00:01] VITALS: BP 117/71
[2017-04-30 03:20] VITALS: BP 109/61
[2017-04-30 03:56] LABS: HEMATOCRIT 28.8 % (42.0-52.0); HEMOGLOBIN 9.9 gm/dL (14.0-18.0); MCH 33.1 pg (26.0-34.0); MCHC 34.5 g/dL (28.0-37.0); MCV 95.7 fL (80.0-100.0); RBC 3.01 mil/uL (4.50-6.00); WBC 11.8 thou/uL (4.0-11.0)
[2017-04-30 04:03] LABS: CALCIUM 7.8 mg/dL (8.5-10.1); MAGNESIUM 2.1 mg/dL (1.8-2.4); POTASSIUM 3.2 mmol/L (3.5-5.1)
[2017-04-30 07:40] VITALS: BP 122/65
[2017-04-30 12:10] VITALS: BP 111/67
[2017-04-30 15:30] VITALS: BP 110/67
[2017-04-30 19:55] VITALS: BP 123/55
[2017-05-01 03:43] VITALS: BP 110/63
[2017-05-01 05:01] LABS: MCH 32.6 pg (26.0-34.0); MCHC 34.7 g/dL (28.0-37.0); MCV 94.1 fL (80.0-100.0); RBC 2.77 mil/uL (4.50-6.00); RDW 14.8 % (10.5-14.5); WBC 11.3 thou/uL (4.0-11.0)
[2017-05-01 05:11] LABS: CALCIUM 7.7 mg/dL (8.5-10.1); CREATININE 0.9 mg/dL (0.7-1.3); POTASSIUM 3.4 mmol/L (3.5-5.1)
[2017-05-01 07:30] VITALS: BP 121/74
[2017-05-01] MEDS ORDERED: DUONEB 2.5-0.5 M3 ML INH (12:13)
[2017-05-01] MEDS ORDERED: DIGOXIN250 MCG PO (12:13)
[2017-05-01] MEDS ORDERED: PACERONE 200 M200 M1 PO (12:13)
[2017-05-01] MEDS ORDERED: BENAZEPRIL HCL5 MG PO (12:13)
[2017-05-01] MEDS ORDERED: ASPIR 8181 MG PO (12:13)
[2017-05-01] MEDS ORDERED: LASIX 40 MG TAB40 M1 PO (12:14)
[2017-05-01] MEDS ORDERED: HYDROCODON-ACE1 EAC7 PO (12:14)
[2017-05-01] MEDS ORDERED: AMBIEN 5 MG TABL5 M1 PO (12:14)
[2017-05-01] MEDS ORDERED: ONDANSETRON HCL4 M1 IV PUSH (12:15)
[2017-05-01] MEDS ORDERED: COLACE 100 MG100 MG PO (12:15)
[2017-05-01] MEDS ORDERED: PEPCID20 MG PO (12:15)
[2017-05-01] MEDS ORDERED: MIRALAX17 GM PO (12:15)
[2017-05-01] MEDS ORDERED: MEROPENEM 1 GM V1 GM IVPB (12:16)
[2017-05-01 12:26] VITALS: BP 115/71
[2017-05-10] MEDS ORDERED: NEBULIZER MISCELL (11:23)
== END 2017-05-01 13:49 | DRG 233 ==
LOC: CATH 09:27 → ICU 18:30 → CATH 18:32 → ICU 18:33 → 2N 04-29 10:51
PROVIDERS: Hospitalist; Internal Medicine; Internal Medicine Cardiovascular Disease; Internal Medicine Pulmonary Disease; Nurse Practitioner; Physician Assistant; Surgery Vascular Surgery; Thoracic Surgery (Cardiothoracic Vascular Surgery)
PROC: 02100Z9 Bypass Coronary Artery, One Artery from Left Internal Mammary, Open Approach (ICD-10-PCS; principal; 2017-04-22)
PROC: 03B Upper Arteries, Excision (ICD-10-PCS; principal; 2017-04-22)
PROC: 5A1221Z Performance of Cardiac Output, Continuous (ICD-10-PCS; principal; 2017-04-22)
PROC: 30233L1 Transfusion of Nonautologous Fresh Plasma into Peripheral Vein, Percutaneous Approach (ICD-10-PCS; 2017-04-23)
PROC: 30233K1 Transfusion of Nonautologous Frozen Plasma into Peripheral Vein, Percutaneous Approach (ICD-10-PCS; 2017-04-23)
PROC: 4A023N8 Measurement of Cardiac Sampling and Pressure, Bilateral, Percutaneous Approach (ICD-10-PCS; 2017-05-01)
DX: I25.10 Atherosclerotic heart disease of native coronary artery without angina pectoris (principal); J96.01 Acute respiratory failure with hypoxia; N17.9 Acute kidney failure, unspecified; J98.11 Atelectasis; K56.7 Ileus, unspecified; Z60.2 Problems related to living alone; I25.5 Ischemic cardiomyopathy; E87.70 Fluid overload, unspecified; I48.0 Paroxysmal atrial fibrillation; I10 Essential (primary) hypertension; E78.5 Hyperlipidemia, unspecified; Z87.442 Personal history of urinary calculi; Z79.82 Long term (current) use of aspirin; Z79.899 Other long term (current) drug therapy; D72.829 Elevated white blood cell count, unspecified; D64.9 Anemia, unspecified; Z90.49 Acquired absence of other specified parts of digestive tract; Z98.49 Cataract extraction status, unspecified eye
CPT/HCPCS: 10078; 10081; 47000; 47001; 47002; 47297; 48888; 50409; 50456; 50498; 51301; 52131; 52259; 53327; 53358; 54118; 56524; 56525; 56526; 56527; 56528; 56531; 56534; 56660; 57093; 62110; 62950; 64029; 65002; 65003; 65020; 65043; 65090; 65120; 85076

== ENCOUNTER 2017-05-01 11:25 | Inpatient (IN) | payer OTHER, MEDICARE ==
[~2017-05-01] VITALS: Ht 177.8 cm; Wt 99.4 kg
--- NOTE | ~2017-05-01 | H ---
[facility] [place] [address] HISTORY AND PHYSICAL Name: NURYS MEAD Room #: 515-P [facility] IN M.R.#: [id number] Admission: 05/01/17 Attend Phys: Adolfo Wise MD Discharge: Date of : 41 Report #: [id number] THIS REPORT FOR: //name// CC: Adolfo Chua DATE OF SERVICE: 05/02/2017 HISTORY OF PRESENT ILLNESS: The patient is a 72-year-old white male originally admitted to [facility] with chest pain, noted to have coronary artery disease and underwent emergent coronary artery bypass grafting x 1 on 04/22/2017. Postoperatively, he had problems with hypoxic respiratory failure. He had atrial fibrillation, ischemic cardiomyopathy and pneumonia. He was cared for in the intensive care unit and initially needed high dose oxygen at 10 liters. He has been able to wean down off of that. He is still noted to have significant functional mobility and ADL deficits along with medical complexity and has been admitted for acute in-hospital inpatient rehabilitation. PAST MEDICAL HISTORY: Includes hypertension, coronary artery disease, hyperlipidemia, history of nephrolithiasis. MEDICATIONS: Please see the full medication listing. Each of these was individually reconciled on admission. They include over the counters, supplements, etc. FAMILY HISTORY: Noncontributory. SOCIAL HISTORY: Lives in a house alone, did not utilize gait aids, 2 steps in, was premorbidly independent with ADLs. There are 10-12 steps with laundry. ALLERGIES: No known drug allergies. HABITS: Nonsmoker, no history of ETOH abuse. REVIEW OF SYSTEMS: No complaints of chest pain, shortness of breath or abdominal discomfort. Noted shortness of breath with limited activity. PHYSICAL EXAMINATION: GENERAL: A 72-year-old white male seen earlier. He was rather sleepy. His temperature was 36.7, pulse 94, respirations 20, blood pressure 121/63. HEENT: Appeared to be benign. Facies were symmetric. CHEST: Sounded clear to auscultation. He has the sternal incision with the dressing that appeared dry. CARDIAC: Regular rate and rhythm. ABDOMEN: Bowel sounds positive, nontender. GENITOURINARY AND RECTAL: Deferred. [facility] [address] [place] [address] HISTORY AND PHYSICAL Name: NURYS MEAD Room #: 515-P [facility] IN [facility].#: [id number] Admission: 05/01/17 Attend Phys: Adolfo Wise MD Discharge: Date of : 41 Report #: [id number] EXTREMITIES: He has functional range of motion of both upper extremities with strength grade 4-/5. DTRs are trace to 1. Lower extremities, no focal calf swelling, trace to 1 distal lower extremity edema. Tone appeared to be intact. Strength is grade 3+/5. Transfers were contact guard. He had been ambulating a short distance with a front-wheeled walker. ASSESSMENT: A 72-year-old white male with following problem list: 1. Medical complexity with generalized debilitation. 2. Pulmonary rehabilitation. 3. Chest pain with coronary artery disease status post emergent coronary artery bypass grafting x 1. 4. Atrial fibrillation. 5. Ischemic cardiomyopathy. 6. Pulmonary infiltrates with pneumonia, gradually improving. 7. Atrial fibrillation with conversions in normal sinus rhythm. 8. Hyperlipidemia. 9. Hypertension. 10. History of kidney stones. PLAN: The patient is admitted for acute in-hospital inpatient rehabilitation. From a postadmission physician evaluation perspective, there are no relevant changes since the preadmission screening. Please see the above review of prior and current medical and functional conditions and comorbidities. Please see the patient's prior and current functional status. As far as risk of complications, he has the above noted multiple medical comorbidities. Initial plan of care involves the interdisciplinary acute inpatient rehabilitation program with the goal of maximizing the patient's functional independence, so that he can hopefully return back to his prior living situation. Measurable functional goals would be for the patient to become modified independent with transfers, mobility and ADLs and hopefully achieve a level that he can return back to the home setting. Prognosis is reasonably good with estimated length of stay probably 7-14 days pending progress. Potential barriers would include his multiple medical comorbidities and decreased functional status. The patient meets diagnostic criteria for an acute in-hospital inpatient rehabilitation stay. He meets medical necessity criteria and we will have the clinical program consultant physicians continue to follow while he is on the rehab duenas. He does meet the tolerance criteria for an acute inpatient rehabilitation stay and has appropriate discharge goals back to the home setting. <ELECTRONICALLY SIGNED> By: Adolfo Wise MD 05/05/17 1518 1306 1339 Adolfo Wise MD /nt
--- NOTE | ~2017-05-01 | HC ---
[facility] [place] [address] CONSULTATION Name: NURYS MEAD Room #: 501-A [facility] IN ..#: [id number] Admission: 05/01/17 Attend Phys: Adolfo Wise MD Discharge: 05/08/17 Date of : 41 Report #: [id number] THIS REPORT FOR: //name// CC: Adolfo Wise Sophy Burnsaubrey DATE OF SERVICE: 05/03/2017 ATTENDING PHYSICIAN: Adolfo Wise M.D. SENSORY SCIENTIST: Heber Carrera, PhD CLINICAL PRESENTATION: The patient is a 72-year-old male admitted to the [facility] rehabilitation unit for a comprehensive inpatient rehabilitation program to improve functional mobility, activities of daily living and self-care and as a result of secondary deficits from medical complexity and generalized debilitation. The patient carries a past medical history that includes hypertension, coronary artery disease, hyperlipidemia, and history of nephrolithiasis. He was in his normal state of health when he had undergone emergent coronary artery bypass grafting times 1 on 04/22/2017. He developed problems from hypoxic respiratory failure, atrial fibrillation and ischemic cardiomyopathy. Diagnoses also include a history of kidney stones. A complete description of his medical condition and history along with medications can be found in his medical record. Neuropsychological consultation was requested to provide assistance in the assessment of cognitive and emotional status and to provide recommendations and services. Prior to this most recent medical event, he was living alone in his own home. The patient has two children. He was independent with basic and instrumental activities of daily living. He is a high school graduate. The patient was employed as an high voltage electrician prior to shelter. He exercises regularly and was practicing martial arts and was maintaining a healthy lifestyle. There was no reported history of alcohol/drug abuse or treatment for mood disorder. TECHNIQUES UTILIZED: Clinical interview, review of medical records, staff consultation and behavioral observation, mini mental status exam 2 standard version, clock drawing and calibrated ideational fluency assessment (letter and category). EXAMINATION FINDINGS: The patient was alert and cooperative with the assessment. He accurately described events surrounding his admission. There is no evidence of aphasia. His thoughts were logical and goal oriented. There is no evidence of thought disorder. He does not report auditory or visual hallucinations. He describes his symptoms to include being short of breath, tiredness and fatigue, and decreased energy. He also acknowledges reduced verbal fluency with decreased word finding. Memory is reported as within normal [address] [address] CONSULTATION Name: NURYS MEAD Danielle Room #: 501-A [facility] [id number] Admission: 05/01/17 Attend Phys: Adolfo Wise MD Discharge: 05/08/17 Date of : 41 Report #: [id number] limits. The patient does not report subjective anxiety or depression. Sleep disturbance is noted. Appetite is described as returned to normal. His performance on the MMSE 2 standard version was within normal limits with a raw score of 27 of 30. He was 2/3 for immediate recall of 3 items after a brief time delay and distraction. He reported the season is spring rather than summer. He was 5/[address] and 4/5 for orientation to time. He was 4/5 for serial 7's. The patient was able to write a sentence, follow a single written command, and copy a simple geometric design. He was also able to draw a clock and set the hands at a designated time. Verbal fluency assessment suggests mild impairment. Letter fluency was a T score of 39, which is at the 14th percentile and in the mild range of impairment. Category fluency was within normal limits with a T score of 42 and percentile rank of 21. Overall, total verbal fluency was a T score of 37, which is at the 10th percentile and in the mild range of impairment. 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 RECOMMENDATIONS: The patient may benefit from initial assistance in the management with instrumental activities of daily living upon his return home. Driving should be delayed until cognition returns to within normal limits. Assistance will likely be necessary in higher level executive functioning that includes planning and problem solving. Thank you very much for allowing me to provide the consultation on this patient. <ELECTRONICALLY SIGNED> By: Heber Carrera, PhD 05/09/17 1541 1536 0646 Heber Carrera, PhD /nt
--- NOTE | ~2017-05-01 | PLAN ---
[facility] [place] [address] REHAB UNIT PLAN OF CARE Name: NURYS MEAD Room #: 515-P ADM IN M.R.#: [id number] Admission: 05/01/17 Attend Phys: Adolfo Wise MD Discharge: Date of : 41 Report #: [id number] THIS REPORT FOR: //name// CC: Adolfo Chua HISTORY OF PRESENT ILLNESS: The patient is seen back today in followup. He is in no distress. Last recorded temperature is 36.6, pulse 110, respirations 19, blood pressure 143/72. No focal calf swelling. His sternal incision appears to be intact. There is no focal calf swelling. He is standby assistance with sit to supine. Gait 250 feet contact guard assistance. Transfers are min assist. Lower extremity dressing is min assist. ASSESSMENT: 1. Medical complexity with generalized debilitation. 2. Pulmonary rehabilitation. 3. Chest pain with coronary artery disease status post coronary artery bypass grafting x 1. 4. Atrial fibrillation. 5. Ischemic cardiomyopathy. 6. Pulmonary infiltrates with pneumonia, gradually improving. 7. Atrial fibrillation with conversion to normal sinus rhythm. 8. Hyperlipidemia. 9. Hypertension. 10. History of kidney stones. PLAN: The overall plan of care is based on the preadmission screen, post-admission physician evaluation and information garnered from therapy assessments. 1. Estimated length of stay is probably at least 7-14 days pending progress. 2. Medical prognosis is reasonably good. 3. Anticipated interventions includes the interdisciplinary acute inpatient rehabilitation program with PT and OT working with him, rehab nursing assisting regarding medication management, skin care prophylaxis, bowel and bladder issues and nursing education. Case management is involved as well as the java consultant physicians. 4. Anticipated functional outcomes would be for the patient to become modified independent, ambulating ideally without a device and independent with mobility and ADLs. 5. Discharge destination would be back to the home setting where he lives by himself. 6. Expected therapy by discipline includes PT, OT 1-1/2 hours per day each five days a week throughout the duration of the acute inpatient rehabilitation stay. <ELECTRONICALLY SIGNED> By: Adolfo Wise MD 05/05/17 1518 0828 1220 Adolfo Wise MD /nt
[2017-05-01] MEDS ORDERED: PACERONE 200 M200 M1 PO (12:13)
[2017-05-01] MEDS ORDERED: DUONEB 2.5-0.5 M3 ML INH (12:13)
[2017-05-01] MEDS ORDERED: DIGOXIN250 MCG PO (12:13)
[2017-05-01] MEDS ORDERED: ASPIR 8181 MG PO (12:13)
[2017-05-01] MEDS ORDERED: BENAZEPRIL HCL5 MG PO (12:13)
[2017-05-01] MEDS ORDERED: HYDROCODON-ACE1 EAC7 PO (12:14)
[2017-05-01] MEDS ORDERED: AMBIEN 5 MG TABL5 M1 PO (12:14)
[2017-05-01] MEDS ORDERED: LASIX 40 MG TAB40 M1 PO (12:14)
[2017-05-01] MEDS ORDERED: COLACE 100 MG100 MG PO (12:15)
[2017-05-01] MEDS ORDERED: MIRALAX17 GM PO (12:15)
[2017-05-01] MEDS ORDERED: ONDANSETRON HCL4 M1 IV PUSH (12:15)
[2017-05-01] MEDS ORDERED: PEPCID20 MG PO (12:15)
[2017-05-01] MEDS ORDERED: MEROPENEM 1 GM V1 GM IVPB (12:16)
[2017-05-02 04:45] LABS: HEMATOCRIT 25.7 % (42.0-52.0); HEMOGLOBIN 9.1 gm/dL (14.0-18.0); MCH 33.6 pg (26.0-34.0); MCHC 35.3 g/dL (28.0-37.0); MCV 95.3 fL (80.0-100.0); RBC 2.7 mil/uL (4.50-6.00); RDW 15.2 % (10.5-14.5); WBC 10.4 thou/uL (4.0-11.0)
[2017-05-02 04:54] LABS: CALCIUM 7.8 mg/dL (8.5-10.1); CREATININE 1.1 mg/dL (0.7-1.3); POTASSIUM 3.6 mmol/L (3.5-5.1)
[2017-05-02 05:55] VITALS: BP 121/63
[2017-05-02 16:00] VITALS: BP 124/53
[2017-05-03 05:25] VITALS: BP 150/67
[2017-05-03 08:40] VITALS: BP 124/78
[2017-05-03 16:03] VITALS: BP 125/62
[2017-05-04 04:52] VITALS: BP 143/72
[2017-05-04 16:00] VITALS: BP 118/44
[2017-05-05 05:31] VITALS: BP 137/74
[2017-05-05 16:00] VITALS: BP 132/55
[2017-05-06 06:04] VITALS: BP 123/65
[2017-05-06 07:19] LABS: ALBUMIN 2.5 g/dL (3.4-5.0); CALCIUM 8.2 mg/dL (8.5-10.1); MAGNESIUM 2.2 mg/dL (1.8-2.4); POTASSIUM 4.3 mmol/L (3.5-5.1)
[2017-05-06 08:30] VITALS: BP 131/56
[2017-05-06 12:31] LABS: HEMATOCRIT 28.1 % (42.0-52.0); HEMOGLOBIN 9.5 gm/dL (14.0-18.0)
[2017-05-06 18:53] VITALS: BP 133/48
[2017-05-07 05:27] VITALS: BP 120/60
[2017-05-07 15:07] VITALS: BP 124/45
[2017-05-07 15:38] VITALS: BP 111/54
[2017-05-08 04:32] VITALS: BP 108/58
[2017-05-08 07:15] VITALS: BP 129/73
[2017-05-08] MEDS ORDERED: COLACE 100 MG100 MG PO (10:53)
[2017-05-08] MEDS ORDERED: TOPROL XL25 MG PO (10:53)
[2017-05-08] MEDS ORDERED: PRADAXA150 MG PO (10:53)
[2017-05-08] MEDS ORDERED: DIGOXIN250 MCG PO (10:53)
[2017-05-08] MEDS ORDERED: MIRALAX17 GM PO (10:53)
[2017-05-08] MEDS ORDERED: HYDROCODON-ACE1 EAC7 PO (10:53)
[2017-05-08] MEDS ORDERED: ASPIR 8181 MG PO (10:53)
[2017-05-08] MEDS ORDERED: BENAZEPRIL HCL5 MG PO (10:53)
[2017-05-08] MEDS ORDERED: PACERONE 200 M200 M1 PO (10:53)
[2017-05-08] MEDS ORDERED: LASIX 40 MG TAB40 M1 PO (10:53)
[2017-05-08] MEDS ORDERED: AMBIEN 5 MG TABL5 M1 PO (10:53)
[2017-05-08 11:57] VITALS: BP 124/45
[2017-05-08 12:08] VITALS: BP 124/45
[2017-05-10] MEDS ORDERED: NEBULIZER MISCELL (11:23)
== END 2017-05-08 14:02 | disposition home health service (06) | DRG 947 ==
PROVIDERS: Nurse Practitioner; Physical Medicine & Rehabilitation
DX: R53.81 Other malaise (principal); J96.01 Acute respiratory failure with hypoxia; J18.9 Pneumonia, unspecified organism; K56.7 Ileus, unspecified; N17.9 Acute kidney failure, unspecified; I10 Essential (primary) hypertension; I25.10 Atherosclerotic heart disease of native coronary artery without angina pectoris; E78.5 Hyperlipidemia, unspecified; G31.84 Mild cognitive impairment of uncertain or unknown etiology; I25.5 Ischemic cardiomyopathy; I48.91 Unspecified atrial fibrillation; Z60.2 Problems related to living alone; Z90.49 Acquired absence of other specified parts of digestive tract; Z87.442 Personal history of urinary calculi; Z95.1 Presence of aortocoronary bypass graft
CPT/HCPCS: 10112

== ENCOUNTER → 2017-06-10 | Outpatient (CLI) | payer OTHER, MEDICARE ==
[~2017-06-10] MED LIST changes: +AMBIEN 5 MG TABL5 M1 PO; +ASPIR 8181 MG PO; +BENAZEPRIL HCL5 MG PO; +COLACE 100 MG100 MG PO; +DIGOXIN250 MCG PO; +DUONEB 2.5-0.5 M3 ML INH; +HYDROCODON-ACE1 EAC7 PO; +LASIX 40 MG TAB40 M1 PO; +MEROPENEM 1 GM V1 GM IVPB; +MIRALAX17 GM PO; +NEBULIZER MISCELL; +ONDANSETRON HCL4 M1 IV PUSH; +PACERONE 200 M200 M1 PO; +PEPCID20 MG PO
== END ==
LOC: RAD 09:53
DX: R06.02 Shortness of breath (principal)

== ENCOUNTER → 2017-08-04 | Outpatient (CLI) | payer OTHER, MEDICARE ==
--- NOTE | ~2017-08-04 | 2DMMODE ---
[facility] [place] [address] 2 D/M-MODE ECHOCARDIOGRAM Name: ALYCENURYS L Room #: REG [facility]#: [id number] Admission: 08/04/17 Attend Phys: Rocael Vitale Discharge: Date of : 41 Date of Service: 08/04/17 0959 Report #: [id number] THIS REPORT FOR: //name// APPROVED REPORT Study performed: 08/04/2017 09:04:43 EXAM: Comprehensive 2D, Doppler, and color-flow Echocardiogram Patient Location: Out-Patient Status: routine BSA: 2.11 HR: 55 bpm BP: 136/70 mmHg Rhythm: NSR Other Information Study Quality: Adequate Indications CAD Hx: CABG 2016. Afib 2D Dimensions RVDd: 44.87 mm LVEF(%): 48.05 (>50%) IVSd: 11.47 (7-11mm) LVOT Diam: 22.74 (18-24mm) LVDd: 54.40 mm PWd: 10.91 (7-11mm) Ascending Ao: 40.39 (22-36mm) LVDs: 41.10 (25-40mm) Aortic Root: 38.10 mm Arauz's LVEF: 48.05 % Volumes Left Atrial Volume (Systole) Single Plane 4CH: 69.05 mL Single Plane 2CH: 63.26 mL LA ESV Index: 35.00 mL/m2 Aortic Valve AoV Peak Vinicius.: 1.40 m/s AO Peak Gr.: 7.89 mmHg LVOT Max P.74 mmHg LVOT Max V: 0.97 m/s JANINE Vmax: 2.80 cm2 AI Vmax: 4.41 m/s AI Hooker: 2.37 m/s2 AI PHT: 540.20 ms [facility] [employer] [place] [address] 2 D/M-MODE ECHOCARDIOGRAM Name: NURYS MEAD [id number] Admission: 08/04/17 Attend Phys: Rocael Vitale Discharge: Date of : 41 Date of Service: 08/04/17 0959 Report #: [id number] Mitral Valve E/A Ratio: 1.1 MV Decel. Time: 182.62 ms MV E Max Vinicius.: 0.88 m/s MV A Vinicius.: 0.78 m/s MV PHT: 52.96 ms IVRT: 87.66 ms Pulmonary Valve PV Peak Vinicius.: 1.21 m/s PV Peak Gr.: 5.82 mmHg Pulmonary Vein P Vein S: 0.73 m/s P Vein D: 0.53 m/s P Vein S/D Ratio: 1.38 Tricuspid Valve TR Peak Vinicius.: 2.50 m/s RAP Estimate: 5.00 mmHg TR Peak Gr.: 25.05 mmHg PA Pressure: 30.00 mmHg Left Ventricle The left ventricle is normal size. Distal septal, distal inferior wall, and apical hypokinesis Mild basal septal hypertrophy is present. Left ventricular systolic function is mildly decreased. LVEF is 45-50%. Moderate diastolic dysfunction is present (pseudonormal filling). Right Ventricle Right ventricle is mildly dilated. The right ventricular systolic function is normal. Atria Left atrium is mildly dilated. Right atrium is mildly dilated. Aortic Valve Aortic valve is mildly calcified. Mild to moderate aortic regurgitation. There is no aortic valvular stenosis. Mitral Valve Mild mitral annular calcification. Mild mitral regurgitation. Tricuspid Valve [facility] [address] [place] [address] 2 D/M-MODE ECHOCARDIOGRAM Name: NURYS MEAD Room #: [facility]#: [id number] Admission: 08/04/17 Attend Phys: [facility] Discharge: Date of : 41 Date of Service: 08/04/17 0959 Report #: [id number] The tricuspid valve is normal in structure. There is mild to moderate tricuspid regurgitation. There is borderline mild pulmonary hypertension with an estimated PAP of 30mmHg. Pulmonic Valve The pulmonary valve is normal in structure. Trace pulmonic regurgitation. Great Vessels Aortic root imeasures at the upper limits of normal. The ascending aorta is mildly dilated at 4.0cm. IVC is normal in size and collapses >50% with inspiration. Pericardium There is no pericardial effusion. <Conclusion> Left ventricular systolic function is mildly decreased. LVEF is 45-50%. Distal septal, distal inferior wall, and apical hypokinesis Grade II diastolic dysfunction Both atria are mildly dilated. Aortic valve is mildly calcified, no stenosis. Mild to moderate aortic regurgitation. Mild mitral annular calcification. Mild mitral regurgitation. The ascending aorta is mildly dilated at 4.0cm. Pulmonary artery pressure of 30mmHg There is no pericardial effusion. <ELECTRONICALLY SIGNED> By: Carlos Eduardo Casiano MD, FACC 08/04/1759 Carlos Eduardo Casiano MD, FACC /INF
== END ==
LOC: CV 08:47
DX: I08.0 Rheumatic disorders of both mitral and aortic valves (principal); I50.30 Unspecified diastolic (congestive) heart failure; I25.810 Atherosclerosis of coronary artery bypass graft(s) without angina pectoris

== ENCOUNTER → 2018-05-05 | Outpatient (CLI) | payer OTHER, MEDICARE ==
[~2018-05-05] MED LIST changes: +NORCO 5-325 TA1 EACH PO; +NORVASC5 MG PO; +ZOCOR20 MG PO
--- NOTE | ~2018-05-05 | 2DMMODE ---
[facility] [email or web address] [place] [address] 2 D/M-MODE ECHOCARDIOGRAM Name: ALYCENURYS Danielle Room #: REG [facility]#: [id number] Admission: 05/05/18 Attend Phys: Rocael Vitale Discharge: Date of : 41 Date of Service: 05/05/18 1443 Report #: [id number] THIS REPORT FOR: //name// ADDENDUM APPROVED REPORT Study performed: 05/05/2018 14:02:22 EXAM: Comprehensive 2D, Doppler, and color-flow Echocardiogram Patient Location: Out-Patient Status: routine BSA: 2.11 HR: 61 bpm BP: 135/68 mmHg Rhythm: Irregular Other Information Study Quality: Adequate Indications Cardiomyopathy. Hx: Afib 2D Dimensions RVDd: 47.11 mm LVEF(%): 43.43 (>50%) IVSd: 10.67 (7-11mm) LVOT Diam: 22.42 (18-24mm) LVDd: 51.44 mm PWd: 8.88 (7-11mm) Ascending Ao: 38.70 (22-36mm) LVDs: 40.35 (25-40mm) Aortic Root: 36.91 mm Arauz's LVEF: 43.43 % Volumes Left Atrial Volume (Systole) Single Plane 4CH: 55.25 mL Single Plane 2CH: 73.32 mL LA ESV Index: 32.00 mL/m2 Aortic Valve AoV Peak Vinicius.: 1.40 m/s AO Peak Gr.: 7.79 mmHg LVOT Max P.03 mmHg LVOT Max V: 1.23 m/s JANINE Vmax: 3.47 cm2 AI Vmax: 3.99 m/s AI Mathews: 1.82 m/s2 AI PHT: 635.59 ms [facility] [email or web address] [address] 2 D/M-MODE ECHOCARDIOGRAM Name: NURYS MEAD [facility] [id number] Admission: 05/05/18 Attend Phys: Rocael Vitale Discharge: Date of : 41 Date of Service: 05/05/18 1443 Report #: [id number] Mitral Valve E/A Ratio: 0.6 MV Decel. Time: 328.60 ms MV E Max Vinicius.: 0.62 m/s MV A Vinicius.: 0.96 m/s MV PHT: 95.30 ms IVRT: 96.89 ms Pulmonary Valve PV Peak Vinicius.: 1.16 m/s PV Peak Gr.: 5.98 mmHg Pulmonary Vein P Vein S: 0.66 m/s P Vein A: 0.25 m/s P Vein D: 0.48 m/s P Vein A Dur.: 124.6 msec P Vein S/D Ratio: 1.38 Tricuspid Valve TR Peak Vinicius.: 2.42 m/s RAP Estimate: 5.00 mmHg TR Peak Gr.: 23.52 mmHg Left Ventricle The left ventricle is normal size. There is normal left ventricular wall thickness. Left ventricular systolic function is mildly decreased. LVEF is 45%. Mild diastolic dysfunction is present (impaired relaxation pattern). Right Ventricle Right ventricle is at the upper limits of normal. The right ventricular systolic function is normal. Atria Left atrium is mildly dilated. Right atrium is mildly dilated. Aortic Valve The Aortic valve is mildly sclerotic. Moderate aortic regurgitation. There is no aortic valvular stenosis. Mitral Valve The mitral valve is normal in structure. Mild mitral regurgitation. No evidence of mitral valve stenosis. Tricuspid Valve The tricuspid valve is normal in structure. Mild to moderate tricuspid regurgitation. Estimated PAP is 30mmHg. [address] [address] 2 D/M-MODE ECHOCARDIOGRAM Name: NURYS MEAD Room #: REG [facility]#: [id number] Admission: 05/05/18 Attend Phys: Rocael Vitale Discharge: Date of : 41 Date of Service: 05/05/18 1443 Report #: [id number] Pulmonic Valve The pulmonary valve is normal in structure. Trace pulmonic regurgitation. Great Vessels Aortic root measures at the upper limits of normal. The ascending aorta is mildly dilated at 3.9cm. IVC is normal in size and collapses >50% with inspiration. Pericardium There is no pericardial effusion. <Conclusion> The left ventricle is normal size. LVEF is 45%.with severe hypokinesis to akinesis of apex and adjacent small Right ventricle is at the upper limits of normal. Left atrium is mildly dilated. Right atrium is mildly dilated. The Aortic valve is mildly sclerotic. Moderate aortic regurgitation. The mitral valve is normal in structure. Mild mitral regurgitation. The tricuspid valve is normal in structure. Mild to moderate tricuspid regurgitation. Estimated PAP is 30mmHg. The pulmonary valve is normal in structure. Trace pulmonic regurgitation. The ascending aorta is mildly dilated at 3.9cm. There is no pericardial effusion. <ELECTRONICALLY SIGNED> By: Abel Zarate MD 05/05/18 1443 1443 1443 Abel Zarate MD /INF
== END ==
LOC: CV 11:20
DX: I08.1 Rheumatic disorders of both mitral and tricuspid valves (principal)

== ENCOUNTER → 2019-06-07 | Outpatient (CLI) | payer OTHER, MEDICARE ==
--- NOTE | 2019-06-07 15:02 | 2DMMODE ---
[employer] [address] 2 D/M-MODE ECHOCARDIOGRAM Name: ALYCENURYS L Room #: REG [facility]#: [id number] ������������� Admission: 06/07/19 ������������� Attend Phys: Rocael Vitale Discharge: ��� ������������� ��� Date of : 41 Date of Service: 06/07/19 1502 �� Report #: [id number] �������� ��������������������������������������������[id number] THIS REPORT FOR: //name// APPROVED REPORT Study performed: 06/07/2019 14:05:32 EXAM: Comprehensive 2D, Doppler, and color-flow Echocardiogram Patient Location: Out-Patient Status: routine BSA: 2.09 HR: 57 bpm BP: 124/66 mmHg Rhythm: NSR/Irregular Other Information Study Quality: Adequate Indications Atrial Fibrillation HTN Hx: CABG 2D Dimensions RVDd: 43.36 mm IVSd: 12.92 (7-11mm) LVOT Diam: 22.33 (18-24mm) LVDd: 51.87 mm PWd: 12.07 (7-11mm) Ascending Ao: 40.15 (22-36mm) LVDs: 41.76 (25-40mm) Aortic Root: 37.01 mm Volumes Left Atrial Volume (Systole) Single Plane 4CH: 68.74 mL Single Plane 2CH: 65.97 mL LA ESV Index: 35.00 mL/m2 Aortic Valve AoV Peak Vinicius.: 1.32 m/s AO Peak Gr.: 6.95 mmHg LVOT Max P.73 mmHg LVOT Max V: 0.97 m/s JANINE Vmax: 2.87 cm2 AI Vmax: 4.20 m/s AI Hernando: 2.52 m/s2 AI PHT: 482.08 ms [email or web address] [address] 2 D/M-MODE ECHOCARDIOGRAM Name: NURYS MEAD Room #: [facility]#: [id number] ������������� Admission: 06/07/19 ������������� Attend Phys: Rocael Vitale Discharge: ��� ������������� ��� Date of : 41 Date of Service: 06/07/19 1502 �� Report #: [id number] �������� ��������������������������������������������[id number] Mitral Valve E/A Ratio: 0.9 MV Decel. Time: 258.67 ms MV E Max Vinicius.: 0.80 m/s MV A Vinicius.: 0.93 m/s MV PHT: 75.01 ms IVRT: 83.04 ms Pulmonary Valve PV Peak Vinicius.: 1.20 m/s PV Peak Gr.: 5.74 mmHg Pulmonary Vein P Vein S: 0.61 m/s P Vein D: 0.56 m/s P Vein S/D Ratio: 1.09 Tricuspid Valve TR Peak Vinicius.: 2.42 m/s RAP Estimate: 5.00 mmHg TR Peak Gr.: 23.50 mmHg PA Pressure: 29.00 mmHg Left Ventricle The left ventricle is normal size. Regional wall motion abnormalities are noted. Mild basal septal hypertrophy is present. Left ventricular systolic function is mildly decreased. LVEF is 45%. Mild diastolic dysfunction is present (impaired relaxation pattern). Right Ventricle Right ventricle is mildly dilated. The right ventricular systolic function is normal. Atria Left atrium is mildly dilated. Right atrium is mildly dilated. Aortic Valve The Aortic valve is mildly sclerotic. Moderate aortic regurgitation. There is no aortic valvular stenosis. Mitral Valve The mitral valve is normal in structure. Mild mitral regurgitation. Tricuspid Valve The tricuspid valve is normal in structure. Moderate tricuspid [address] [place] [address] 2 D/M-MODE ECHOCARDIOGRAM Name: NURYS MEAD Room #: [facility]#: [id number] ������������� Admission: 06/07/19 ������������� Attend Phys: Rocael Vitale Discharge: ��� ������������� ��� Date of : 41 Date of Service: 06/07/19 1502 �� Report #: [id number] �������� ��������������������������������������������[id number] regurgitation. Estimated PAP is 30mmHg. Pulmonic Valve The pulmonary valve is normal in structure. Mild pulmonic regurgitation. Great Vessels Aortic root measures at the upper limits of normal. The ascending aorta is mildly dilated at 4.0cm. IVC is normal in size and collapses >50% with inspiration. Pericardium There is no pericardial effusion. <Conclusion> The left ventricle is normal size. Anteriorapical hypokinesis. Left ventricular systolic function is mildly decreased. LVEF is 45%. The Aortic valve is mildly sclerotic. Moderate aortic regurgitation. ��������������������������������������������� <ELECTRONICALLY SIGNED> ���������������������������������������� By: Rocael Vitale MD ��������������������������������������������� 06/07/19 150 01 01 Rocael Vitale MD /INF
== END ==
LOC: CV 06-01 13:30
DX: I08.8 Other rheumatic multiple valve diseases (principal); I11.9 Hypertensive heart disease without heart failure; I48.0 Paroxysmal atrial fibrillation

== ENCOUNTER 2019-09-19 09:29 | Observation (INO) | payer OTHER, MEDICARE ==
[~2019-09-19] VITALS: Ht 177.8 cm; Wt 95.3 kg
[2019-09-19] VITALS (7 sets, daily range): BP systolic 116–159; BP diastolic 59–76
--- NOTE | ~2019-09-19 | H ---
[facility] [place] [address] HISTORY AND PHYSICAL Name: NURYS MEAD Room #: 210-P [facility] Kermit MMiroslava#: [id number] Admission: 09/19/19 Attend Phys: Rocael Vitale MD Discharge: 09/19/19 Date of : 41 Report #: [id number] THIS REPORT FOR: //name// CC: Rocael Vitale [facility] DATE OF SERVICE: 09/19/2019 PREOPERATIVE DIAGNOSES: 1. Nonsustained ventricular tachycardia. 2. Supraventricular tachycardia. HISTORY OF PRESENT ILLNESS: The patient is a 74-year-old with history of ischemic cardiomyopathy, who recently had some episodes of SVT and nonsustained VT on a library monitor. He is here for EP study, possible ablation, possible ICD implantation. REVIEW OF SYSTEMS: A 12-point review of systems was performed, negative other than mentioned above. PAST MEDICAL HISTORY: 1. Atrial fibrillation. 2. Hypertension. 3. Hyperlipidemia. 4. Kidney stones. 5. Echo 02/2017, EF 55%-60%. 6. 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 7. Ischemic cardiomyopathy. 8. Echocardiogram 04/2018, EF 45%. SOCIAL HISTORY: Does not smoke. FAMILY HISTORY: Noncontributory. ALLERGIES: None. MEDICATIONS: Reviewed. PHYSICAL EXAMINATION: VITAL SIGNS: Stable. GENERAL: No acute distress. HEENT: Oropharynx clear. NECK: Supple with no thyromegaly. HEART: Regular rate and rhythm. LUNGS: Clear to auscultation bilaterally. [facility] [address] [place] [address] HISTORY AND PHYSICAL Name: NURYS MEAD Room #: 210-P [facility] Kermit M.R.#: [id number] Admission: 09/19/19 Attend Phys: Rocael Vitale MD Discharge: 09/19/19 Date of : 41 Report #: [id number] ABDOMEN: Soft, nontender, nondistended. EXTREMITIES: No clubbing, cyanosis, edema. ASSESSMENT AND PLAN: 1. Supraventricular tachycardia. 2. Nonsustained ventricular tachycardia. We will perform an EP study with possible ablation versus ICD implantation. Risks, benefits have been previously documented. By: [id number] Rocael Vitale MD /nt
[2019-09-19 10:10] LABS: ABSOLUTE NEUTROPHILS 3.1 thou/uL (1.4-8.2); BASOPHILS 1.3 % (0.0-2.0); EOSINOPHILS 4.2 % (0.0-3.0); HEMATOCRIT 46.3 % (42.0-52.0); HEMOGLOBIN 15.8 gm/dL (14.0-18.0); LYMPHOCYTES 32.7 % (24.0-44.0); MCH 34.3 pg (26.0-34.0); MCHC 34.2 g/dL (28.0-37.0); MCV 100.4 fL (80.0-100.0); MONOCYTES 10.6 % (1.0-8.0); PLATELET COUNT 179 thou/uL (150-400); POLYS 51.2 % (36.0-66.0); RBC 4.61 mil/uL (4.50-6.00); RDW 12.7 % (10.5-14.5); WBC 6.1 thou/uL (4.0-11.0)
[2019-09-19 10:21] LABS: APTT 26.6 Seconds (24.5-32.8); INR 1.1; PROTIME 11.1 Seconds (9.3-11.4)
[2019-09-19 10:41] LABS: CALCIUM 8.5 mg/dL (8.5-10.1)
[2019-09-19 10:47] LABS: ALBUMIN 3.5 g/dL (3.4-5.0); TOTAL BILIRUBIN 1.9 mg/dL (<0.1-1.0); TOTAL PROTEIN 6.6 g/dL (6.4-8.2)
--- NOTE | 2019-09-19 18:48 | NUR ---
PT CARE ASSUMED APPROX 1640. PT CAME TO UNIT POST ABLATION VIA PACU. ORDERS TO MONITOR VS AND JUDITH GROIN SITES FOR ORDERED BEDREST TIME THEN DISCHARGE IF NO ISSUES. PT HAS STEADY GAIT. VSS. JUDITH GROIN SITES C/D/I WITHOUT EVIDENCE OF HEMATOMA. PAPERWORK AND POST HOSPITAL CARE REVIEWED BY EP NURSE. PT AND SPOUSE DENY QUESTIONS OR CONCERNS REGARDING. IV OUT, TELE BOX OFF. HOSPITAL STAFF TO ESCORT PT OUT TIMELY.
--- NOTE | 2019-09-20 08:34 | EKG ---
[address] [address] ELECTROCARDIOGRAM REPORT Name: SRINIVASAN MEADFOREIGN Santos Room #: 210-[facility]#: [id number] Admission: 09/19/19 Attend Phys: Rocael Vitale MD Discharge: 09/19/19 Date of : 41 Report #: [id number] THIS REPORT FOR: //name// [facility] Test Date: 2019-09-19 Test Time: 09:58:38 Pat Name: NURYS MEAD Department: Room: [facility] Gender: M [employer] Supervisor: Marcus MAHAJAN : 1945 Requested By: Rocael Vitale Order Number: [id number] MD: Rocael Vitale Measurements Intervals [place] Rate: 82 P: 68 MS: 172 QRS: -57 QRSD: 97 T: 56 QT: 485 QTc: 567 Interpretive Statements Sinus rhythm Ventricular bigeminy Inferior infarct, old Anterior infarct, old Electronically Signed On 09-20-2019 8:33:56 CDT by Rocael Vitale [email or web address] <ELECTRONICALLY SIGNED> By: Rocael Vitale MD 09/20/19 0833 Rocael Vitale MD /ZOLTAN
--- NOTE | 2019-09-29 12:28 | P ---
[facility] [place] [address] PROCEDURE REPORT Name: NURYS MEAD Room #: 210-P [facility] Kermit Wood#: [id number] Admission: 09/19/19 Attend Phys: Rocael Vitale MD Discharge: 09/19/19 Date of : 41 Report #: [id number] THIS REPORT FOR: //name// CC: Rocael Gradyie Toma PREOPERATIVE DIAGNOSES: 1. Supraventricular tachycardia. 2. Nonsustained ventricular tachycardia. HISTORY: The patient is a 74-year-old male with history of prior coronary dissection secondary to diagnostic cardiac catheterization, status post CABG with a resultant ischemic cardiomyopathy. Recently been having some palpitations and had some evidence of SVT as well as nonsustained VT on a threat monitoring analyst. He is here for EP study, possible ICD implantation and possible pacemaker implantation, possible SVT ablation. ANESTHESIA: The patient underwent MAC anesthesia with no anesthesia related complications. DESCRIPTION OF PROCEDURE: The patient underwent informed consent. We discussed the details of the procedure including the risks, which include but not limited to bleeding, infection, vascular damage, cardiac perforation and pneumothorax. He understood these risks and is willing to proceed. He was brought to the EP laboratory in fasting and sedated state, prepped and draped in a sterile fashion. I injected lidocaine in bilateral groin regions and obtained access to the bilateral veins, placing an 8 and 6-Uruguayan short sheath in the right femoral vein, a 6 and 7-Uruguayan short sheath in left femoral vein using the modified Seldinger technique. Next, under fluoroscopy, decapolar catheter was placed into the coronary sinus. Of note, had difficulties maintaining the decapolar catheter in the coronary sinus, would fall out where I have to hold it in position in order to do testing. Similarly, had a lot of difficulties with the quadripolar catheter placement into the right ventricle. He had a significant amount of tricuspid regurgitation, which would flip out either a 5 or 6-Uruguayan catheter. However, eventually I was able to get this to stabilize. At baseline, the patient was in sinus rhythm with cycle length of 630 milliseconds, TX interval 155 milliseconds, QRS duration 75 milliseconds, QT interval 360 milliseconds, AH interval 85 milliseconds, and HV interval 45 milliseconds. Next, atrial burst pacing was performed and AV block was noted to be 240 milliseconds. Atrial ERP was noted at 200 milliseconds, at 400 millisecond, basic drive cycle length, double atrial extrastimuli were delivered and no sustained SVT was noted. There were some short runs of what appeared to be an atrial tachycardia that was earliest in CS 1, 2 with inverted P waves in the inferior leads that was sustained for 5-10 beats. Next, ventricular pacing was performed and there was [facility] [address] [place] [address] PROCEDURE REPORT Name: ALYCENURYS L Room #: 210-P [facility] Kermit M.R.#: [id number] Admission: 09/19/19 Attend Phys: Rocael Vitale MD Discharge: 09/19/19 Date of : 41 Report #: [id number] no evidence of VA conduction at baseline. Next, ventricular stem protocol was performed using the S5 protocol. I performed this at 400 and 300 milliseconds and no sustained VT was induced. Next, I tried to move my RV catheter to the right ventricular outflow tract, but this was not possible due to the significant tricuspid regurgitation. Therefore, I had to leave it in an apical position to get a good pacing threshold from the catheter. Next, isoproterenol infusion was started at 1 mcg per minute. Again, aggressive atrial burst pacing was performed and single atrial stimuli were delivered and there was no inducible supraventricular tachycardia. Ventricular stimulation was again performed at 350 and 400 millisecond cycle lengths. Again, I utilized the S5 protocol. Again, there was no nonsustained or sustained VT. Post-procedure, the patient was in sinus rhythm, sinus cycle length of 500 milliseconds, TX interval 160 milliseconds, QRS duration 80 milliseconds, QT interval 330 milliseconds. As such, catheters and sheaths were pulled. Hemostasis was obtained. The patient awoke neurologically and hemodynamically intact. No complications and no significant bleeding. CONCLUSIONS: 1. Normal SA margaret function. 2. Normal AV margaret function. 3. Normal His-Purkinje function. 4. Some short nonsustained runs of atrial tachycardia, likely left-sided. 5. No inducible ventricular tachycardia using the S5 protocol. <ELECTRONICALLY SIGNED> By: Rocael Vitale MD 09/29/19 1228 1523 0126 Rocael Vitale MD /nt
== END 2019-09-19 19:59 | disposition home or self-care (01) ==
LOC: CATH 09:29 → EROBS 10:40 → CATH 15:21 → 2N 16:37
PROVIDERS: ADMIT Internal Medicine Cardiovascular Disease
DX: I47.1 Supraventricular tachycardia (principal); I25.10 Atherosclerotic heart disease of native coronary artery without angina pectoris; I25.5 Ischemic cardiomyopathy; R42 Dizziness and giddiness; I48.0 Paroxysmal atrial fibrillation; I10 Essential (primary) hypertension; E78.5 Hyperlipidemia, unspecified; J44.9 Chronic obstructive pulmonary disease, unspecified; Z79.82 Long term (current) use of aspirin; Z79.899 Other long term (current) drug therapy; Z87.891 Personal history of nicotine dependence
CPT/HCPCS: 62110; 62900; 70005

== ENCOUNTER → 2020-04-24 | Outpatient (CLI) | payer OTHER, MEDICARE | LOC: SJCVC 08:59 | DX: R94.31 Abnormal electrocardiogram [ECG] [EKG] (principal); I44.4 Left anterior fascicular block; I48.0 Paroxysmal atrial fibrillation; I25.5 Ischemic cardiomyopathy; I25.10 Atherosclerotic heart disease of native coronary artery without angina pectoris; I10 Essential (primary) hypertension; J44.9 Chronic obstructive pulmonary disease, unspecified; Z90.49 Acquired absence of other specified parts of digestive tract; Z95.1 Presence of aortocoronary bypass graft; Z79.899 Other long term (current) drug therapy; Z87.891 Personal history of nicotine dependence ==

== ENCOUNTER → 2020-05-16 | Outpatient (CLI) | payer OTHER, MEDICARE ==
[2020-05-16 09:56] LABS: ABSOLUTE NEUTROPHILS 3.3 thou/uL (1.4-8.2); BASOPHILS 1.3 % (0.0-2.0); EOSINOPHILS 3.9 % (0.0-3.0); HEMATOCRIT 43.6 % (42.0-52.0); HEMOGLOBIN 15.2 gm/dL (14.0-18.0); LYMPHOCYTES 31.2 % (24.0-44.0); MCH 34.6 pg (26.0-34.0); MCHC 34.9 g/dL (28.0-37.0); MCV 99.1 fL (80.0-100.0); MONOCYTES 10.7 % (1.0-8.0); PLATELET COUNT 140 thou/uL (150-400); POLYS 52.9 % (36.0-66.0); RDW 13.1 % (10.5-14.5); WBC 6.2 thou/uL (4.0-11.0)
[2020-05-16 10:22] LABS: ALBUMIN 3.5 g/dL (3.4-5.0); CALCIUM 8.4 mg/dL (8.5-10.1); CREATININE 1.1 mg/dL (0.7-1.3); POTASSIUM 4.3 mmol/L (3.5-5.1); TOTAL BILIRUBIN 1.5 mg/dL (0.2-1.0); TOTAL PROTEIN 6.1 g/dL (6.4-8.2)
== END ==
LOC: LAB 05-15 12:51 → CAT 09:17
PROVIDERS: ATTEND Internal Medicine Cardiovascular Disease
DX: I70.1 Atherosclerosis of renal artery (principal); I25.10 Atherosclerotic heart disease of native coronary artery without angina pectoris; K80.20 Calculus of gallbladder without cholecystitis without obstruction; M47.814 Spondylosis without myelopathy or radiculopathy, thoracic region; I48.91 Unspecified atrial fibrillation

== ENCOUNTER → 2020-05-18 | Outpatient (CLI) | payer OTHER, MEDICARE ==
[~2020-05-18] VITALS: Ht 177.8 cm; Wt 99.3 kg
--- NOTE | 2020-05-18 13:39 | TEE ---
[facility] [place] [address] TRANSESOPHAGEAL ECHOCARDIOGRAM Name: NURYS MEAD Room #: REG OFELIA Wood#: [id number] Admission: 05/18/20 Attend Phys: Carlos Eduardo Casiano MD, Discharge: Date of : 41 Report #: [id number] THIS REPORT FOR: cc: Sophy Chua MD, Melanie MD Lundgren,Carlos Eduardo Rouse MD [facility] ~ APPROVED REPORT Study performed: 05/18/2020 12:14:22 EXAM: Comprehensive 2D, Doppler, and color-flow Echocardiogram Patient Location: Out-Patient Room #: 9 Status: routine BSA: 2.17 HR: 75 bpm BP: 128/67 mmHg Rhythm: Atrial Fibrillation Other Information Study Quality: Excellent Indications Atrial Fibrillation Echo Enhancing Agent Indication: Rule out Shunt Agent(s) / Amount(s) Used: Agitated Saline 7 cc Procedure After obtaining informed consent, patient underwent transesophageal echo in the [employer]. Type of Sedation : Conscious Sedation Sedation was administered by Sandra Araujo RN. Sedation was achieved intravenously with: Versed (2.5 MG) Fentanyl (125 MCG) Transesophageal probe was inserted and advanced into esophagus without difficulty by Carlos Eduardo Casiano MD. Echo enhancement indication: R/O Septal defect. Echo enhancement agent administered: Agitated Saline The VENESSA was performed without complications. Throughout the procedure, the blood pressure, pulse oximetry, cardiac rhythm, and rate were monitored. [facility] [address] [place] [address] TRANSESOPHAGEAL ECHOCARDIOGRAM Name: NURYS MEAD Room #: REG [facility]#: [id number] Admission: 05/18/20 Attend Phys: Carlos Eduardo Casiano, Discharge: Date of : 41 Report #: [id number] The patient tolerated the procedure without adverse effects. Recovery from conscious sedation was uneventful and vital signs were stable. Left Ventricle The left ventricle is normal size. There is normal left ventricular wall thickness. Left ventricular ejection fraction is moderate to severely decreased. Anterior and anteroseptal akinesis LVEF is 30%. Right Ventricle The right ventricle is normal size. The right ventricular systolic function is normal. Atria Left atrium is dilated. No thrombus is visualized in the left atrium or appendage. No shunting by contrast bubble injection Right atrium is dilated. Aortic Valve The aortic valve is normal in structure. Mild aortic regurgitation. There is no aortic valvular stenosis. Mitral Valve The mitral valve is normal in structure. Mild mitral regurgitation. No evidence of mitral valve stenosis. Tricuspid Valve The tricuspid valve is normal in structure. Mild tricuspid regurgitation. Pulmonic Valve The pulmonary valve is normal in structure. There is no pulmonic valvular regurgitation. Great Vessels The aortic root is normal in size. Mild atherosclerotic changes, no aneurysmal dilatation. IVC is normal in size and collapses >50% with inspiration. Pericardium There is no pericardial effusion. <Conclusion> Left ventricular ejection fraction is moderate to severely decreased. [facility] [address] [place] [address] TRANSESOPHAGEAL ECHOCARDIOGRAM Name: NURYS MEAD Room #: [facility]#: [id number] Admission: 05/18/20 Attend Phys: Carlos Eduardo Casiano, Discharge: Date of : 41 Report #: [id number] LVEF is 30%. Anterior and anteroseptal akinesis Both atria are dilated. No thrombus is visualized in the left atrium or appendage. No shunting by contrast bubble injection The aortic valve is normal in structure. Mild aortic regurgitation or stenosis. The mitral valve is normal in structure. Mild mitral regurgitation. Mild atherosclerotic changes, no aneurysmal dilatation. There is no pericardial effusion. <ELECTRONICALLY SIGNED> By: Carlos Eduardo Casiano MD, FACC 05/18/20 1338 37 Carlos Eduardo Casiano MD, FACC /INF
== END | disposition home or self-care (01) ==
LOC: CATH 10:28
PROVIDERS: ATTEND Internal Medicine
DX: I48.91 Unspecified atrial fibrillation (principal); I08.3 Combined rheumatic disorders of mitral, aortic and tricuspid valves; I70.0 Atherosclerosis of aorta; I10 Essential (primary) hypertension; I25.2 Old myocardial infarction; E78.5 Hyperlipidemia, unspecified; I25.10 Atherosclerotic heart disease of native coronary artery without angina pectoris; Z98.890 Other specified postprocedural states; Z79.899 Other long term (current) drug therapy; Z87.442 Personal history of urinary calculi; Z95.1 Presence of aortocoronary bypass graft; Z98.41 Cataract extraction status, right eye; Z98.42 Cataract extraction status, left eye; Z82.49 Family history of ischemic heart disease and other diseases of the circulatory system; Z87.891 Personal history of nicotine dependence; Z79.82 Long term (current) use of aspirin

== ENCOUNTER 2020-05-21 06:43 | Observation (INO) | payer OTHER, MEDICARE ==
[~2020-05-21] VITALS: Ht 177.8 cm; Wt 101.2 kg
[2020-05-21] VITALS (10 sets, daily range): BP systolic 116–148; BP diastolic 52–81
[2020-05-21 07:41] LABS: ABSOLUTE NEUTROPHILS 4.1 thou/uL (1.4-8.2); BASOPHILS 0.6 % (0.0-2.0); EOSINOPHILS 3.8 % (0.0-3.0); HEMATOCRIT 46.9 % (42.0-52.0); HEMOGLOBIN 16.1 gm/dL (14.0-18.0); LYMPHOCYTES 30.2 % (24.0-44.0); MCH 34.4 pg (26.0-34.0); MCHC 34.3 g/dL (28.0-37.0); MCV 100.4 fL (80.0-100.0); MONOCYTES 10.8 % (1.0-8.0); PLATELET COUNT 149 thou/uL (150-400); POLYS 54.6 % (36.0-66.0); RBC 4.67 mil/uL (4.50-6.00); RDW 13.2 % (10.5-14.5); WBC 7.5 thou/uL (4.0-11.0)
[2020-05-21 07:58] LABS: APTT 31.2 Seconds (24.5-32.8); INR 1.1; PROTIME 11.1 Seconds (9.3-11.4)
--- OUTSIDE RECORDS SUMMARY | 2020-05-21 14:25 | XMS REPORT | Summary of Care ---
Demographics + + + | Address | [address] | | | [place] [address] | + + + | Home Phone | | + + + | Preferred Language | Unknown | + + + | Marital Status | | + + + | Episcopal Affiliation | [id number] | + + + | Race | White | + + + | Ethnic Group | Not or | + + + Author + + + | Author | [facility] | + + + | Organization | [facility] | + + + | Address | Unknown | + + + | Phone | Unavailable | + + + Support + + +---------+ + | Name | Relationship | Address | Phone | + + +---------+ + | Jovanna Junior | ECON | Unknown | | + + +---------+ + Care Team Providers + +------+ + | Care Tow Car Driver Name | Role | Phone | + +------+ + | Sophy Chua | PCP | | + +------+ + Encounter Details +------+---------+ + + + | Date | Type | Department | Care Team | Description | +------+---------+ + + + | 04/24 | Letter | [facility] | Iam, | | | 08/12 | (Out) | Physician Group | MD Rocael [address] | | | | | [address] | | | | | [address], [address] | [place], [place] | | | | | [address] [place] | [address] | | | | | [place] [address] | [phone] | | | | | [phone] | [phone] | | | | | | (Fax) | | +------+---------+ + + + Allergies No Known Allergiesdocumented as of this encounter (statuses as of 05/21/2020) Medications + + +---------+--------+-----+-----+------+ | Medication | Sig | Dispens | Refill | Sta | End | Stat | | | | ed | s | rt | | us | | | | | | Syed | Syed | | | | | | | e | e | | + + +---------+--------+-----+-----+------+ | aspirin 81 MG | Take 81 mg by | | 0 | | | Acti | | tablet | mouth daily. | | | | | ve | + + +---------+--------+-----+-----+------+ | PRADAXA 150 MG | TAKE 1 CAPSULE | 60 | 11 | 07/ | | Acti | | | (150 MG TOTAL) | capsule | | 22/ | | ve | | capsuleIndicatio | BY MOUTH 2 (TWO) | | | 201 | | | | ns: Atrial | TIMES A DAY | | | 9 | | | | fibrillation | INDICATIONS: | | | | | | | | ATRIAL | | | | | | | | FIBRILLATION. | | | | | | + + +---------+--------+-----+-----+------+ | simvastatin | TAKE 1 TABLET BY | 90 | 3 | 12/ | | Acti | | (ZOCOR) 20 MG | MOUTH EVERY DAY | tablet | | 24/ | | ve | | tablet | AT NIGHT | | | 201 | | | | | | | | 9 | | | + + +---------+--------+-----+-----+------+ | metoprolol | Take 1 tablet | 90 | 3 | 03/ | | Acti | | succinate | (50 mg total) by | tablet | | 25/ | | ve | | (TOPROL-XL) 50 | mouth daily | | | 202 | | | | MG 24 hr tablet | | | | 0 | | | + + +---------+--------+-----+-----+------+ | benazepril | Take 5 mg by | | 0 | | | Acti | | (LOTENSIN) 5 MG | mouth daily | | | | | ve | | tabletIndication | Indications: | | | | | | | s: Hypertension | High Blood | | | | | | | | Pressure | | | | | | | | Disorder | | | | | | + + +---------+--------+-----+-----+------+ documented as of this encounter (statuses as of 05/21/2020) Active Problems + + + | Problem | Noted Date | + + + | Pneumonia | 06/16/2017 | + + + | Paroxysmal atrial fibrillation | 05/27/2017 | + + + | CAD (coronary artery disease), kaibab artery | 04/03/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 | | + + + | Dyslipidemia | 04/03/2017 | + + + | Hypertension | | + + + | Coronary artery disease | | + + + + + | Overview: /2017 Abnormal Nuc Stress test | + + + +---+ | Hyperlipidemia | | + +---+ | Kidney stones | | + +---+ | Preoperative cardiovascular examination | | + +---+ | Coronary artery disease involving kaibab coronary | | | artery of kaibab heart without angina pectoris | | + +---+ + + | Overview: 04/09/2017 Abnormal Nuc Stress test, | | reversible anterolateral wall defect; 04/22/2017 CABG | | X1 LAD ([facility]) | + + documented as of this encounter (statuses as of 05/21/2020) Social History + +-------+---------+--------+ + | Tobacco Use | Types | Packs/D | Years | Date | | | | ay | Used | | + +-------+---------+--------+ + | Former Smoker | | 2 | 10 | Quit: 1971 | + +-------+---------+--------+ + + +---+---+---+ | Smokeless | | | | | Tobacco: Never | | | | | Used | | | | + +---+---+---+ + + +---------+ + | Alcohol Use | Drinks/Week | oz/Week | Comments | + + +---------+ + | No | | | Occasional | + + +---------+ + + + + | Sex Assigned at | Date Recorded | | | | + + + | Not on file | | + + + + + + + | Job Start Date | Occupation | Industry | + + + + | Not on file | Not on file | Not on file | + + + + + + + + | Travel History | Travel Start | Travel End | + + + + + + | No recent travel history | | available. | + + documented as of this encounter Last Filed Vital Signs Not on filedocumented in this encounter Plan of Treatment +------+---------+ + + + | Date | Type | Specialty | Care Team | Description | +------+---------+ + + + | 07/25 | Office | Cardiology | Iam, | | | 08/12 | Visit | | MD [address]ael [address] | | | | | | [address] | | | | | | [place], [place] | | | | | | [address] | | | | | | [phone] | | | | | | [phone] | | | | | | (Fax) | | +------+---------+ + + + + +---------+ + + | Health | Due | Last Done | Comments | | Maintenance | Date | | | + +---------+ + + | (Pneumovax) | | | | | Pneumococcal | 008 | | | | Polysaccharide | | | | | Vaccine Age 65 | | | | | and Over | | | | + +---------+ + + | (Prevnar) | | | | | Pneumococcal | 008 | | | | Conjugate | | | | | Vaccine Age 65 | | | | | and over | | | | + +---------+ + + | INFLUENZA | | | | | VACCINE | 020 | | | + +---------+ + + documented as of this encounter Results Not on filedocumented in this encounter Insurance + +------+ +------+-------+---------+------+ | Payer | Bene | Subscrib | Effe | Phone | Address | Type | | | fit | er ID | ctiv | | | | | | Plan | | e | | | | | | / | | Date | | | | | | Grou | | s | | | | | | p | | | | | | + +------+ +------+-------+---------+------+ | MEDICARE | MEDI | [id number] | 01/21/ | | [place] | | | | CARE | xxx | 2008 | | | | | | | | -Pre | | | | | | PART | | sent | | | | | | A | | | | | | | | AND | | | | | | | | B | | | | | | + +------+ +------+-------+---------+------+ | AARP | AARP | [id number] | 11/23/ | | | | | | | xxx | 2017 | | | | | | | | -Pre | | | | | | | | sent | | | | + +------+ +------+-------+---------+------+ documented as of this encounter"
--- NOTE | 2020-05-21 21:00 | NUR ---
ASSUMMED PT CARE AT [place] [id number]. PT A&O X4. ASSESSMENT CHARTED. FALL PRECAUTIONS IN PLACE. PT DENIES HAVING CHEST PAIN. PT DENIES HAVING SOB. PT DENIES HAVING CHEST PAIN. EDUCATED PT ABOUT POC. PT STATED UNDERSTANDING AND DENIED HAVING FURTHER CONCERNS. R GROIN INTACT C DRY BLOOD. NO HEMATOMA. BEDREST COMPLETE. PT AMBULATES STEADY/INDEPENDENT. VITAL SIGNS STABLE. PT COMFORTABLE. PT DENIES HAVING FURTHER CONCERNS. CATH DC.
[2020-05-22 00:21] VITALS: BP 115/41
[2020-05-22 05:14] VITALS: BP 136/46
--- NOTE | 2020-05-22 06:31 | NUR ---
ASSESSMENTS CHARTED, MEDS GIVEN. PATIENT WAS OFF BED REST AT START OF SHIFT. C/O HIS TV NOT WORKING. ENDED UP MOVING HIM FROM 218 TO 200. PATIENT HAD A RESTFUL SHIFT AFTER THAT. DENIED PAIN. FALL PRECAUTIONS IN PLACE.
[2020-05-22 07:10] VITALS: BP 131/62
[2020-05-22 10:07] VITALS: BP 131/62
--- NOTE | 2020-05-22 11:06 | NUR ---
ASSUMED CARE PT SHIFT CHANGE. ASSESSMENT CHARTED.MEDS GIVEN PER JAN. PT ALERT AND ORIENTED. VSS. DENIES PAIN. GROIN SITE CDI, NO HEMATOMA. DRSNG CHANGED PER OUTREACH NURSE ORDER. PT UP AD BROOK TOLERATING WELL. DC ORDERS ACKNOWLEDGED AND IMPLEMENTED. PAPERWORK DISCUSSED WITH PT AND VINCE MAYBERRY. COMMUNICTES UNDERSTANDING. IV REMOVED. TELE REMOVED. PT LEFT UNIT WITH ALL BELONGINGS.
--- NOTE | 2020-05-22 15:58 | P ---
[facility] [place] [address] PROCEDURE REPORT Name: NURYS MEAD Room #: 200-I [facility] Kermit Wood#: [id number] Admission: 05/21/20 Attend Phys: Rocael Vitale MD Discharge: 05/22/20 Date of : 43 Report #: [id number] THIS REPORT FOR: cc: Sophy Chua MD,Sophy Vitale,Rocael Avalos MD ~ CC: Rocael Chua ATRIAL FIBRILLATION AND ATRIAL FLUTTER ABLATION PREOPERATIVE DIAGNOSES: Atrial fibrillation, atrial flutter. HISTORY: The patient is a 75-year-old with history of AFib, atrial flutter as well as coronary angiogram complicated by coronary artery dissection, status post CABG, who has had recurrent AFib and is here for ablation. PROCEDURES PERFORMED: 1. Atrial fibrillation ablation, CPT code 71013. 2. 3D mapping, CPT code 77978. 3. Intracardiac echo, CPT code 89482. 4. Second pathway ablation, CPT code 22766. ANESTHESIA: The patient underwent general anesthesia with no anesthesia-related complications. DESCRIPTION OF PROCEDURE: The patient underwent informed consent. We discussed the details of the procedure including the risks, which include but not limited to bleeding, vascular damage, cardiac perforation, stroke and ID. He understood these risks and is willing to proceed. The patient was brought to EP laboratory in a fasting and sedated state, prepped and draped in a sterile fashion. I obtained access to the bilateral femoral veins x3, placing an 8, 9 and 7-Gibraltarian short sheath using the modified Seldinger technique. Next, under fluoroscopy, a decapolar catheter was placed in the coronary sinus. Of note, I had difficulties maintaining the decapolar in the coronary sinus, but for his atrial flutter, I was able to maintain this in a proper location. At baseline, the patient was in sinus rhythm with sinus cycle length of 1026 milliseconds, VT interval 190 milliseconds, QRS duration 85 milliseconds, QT interval 495 milliseconds. The patient had a CT scan prior to the procedure, which showed a large left atrial appendage and 2 left and 2 right pulmonary veins. The patient underwent a VENESSA prior to the ablation, which showed no evidence of left atrial appendage thrombus. Of note, using intracardiac ultrasound, I created a 3D geometry of the left atrium. Of note, his heart was very rotated and the left superior pulmonary vein was directly in line with the left atrial appendage. Actually, on intracardiac ultrasound, I was able to image the left atrial appendage and left superior pulmonary vein at [address] [address] PROCEDURE REPORT Name: NURYS MEAD Danielle Room #: 200-I [facility] Kermit JacksonCyndi#: [id number] Admission: 05/21/20 Attend Phys: Rocael Vitale MD Discharge: 05/22/20 Date of : 43 Report #: [id number] the same time. Therefore, fluoroscopically, things were quite rotated. The patient was systemically heparinized and a transseptal was performed using an SL1 sheath and a Turlock needle. This was straightforward and I was able to get my wire into the left superior pulmonary vein. I could not advance the SL1 sheath into the left atrium, but I was able to exchange for the cryo sheath and this advanced into the left atrium with ease. Next, I placed a [employer] Lasso catheter into the left atrium and created a detailed 3D voltage map of the left atrium and the pulmonary veins. Then, I placed the cryoablation balloon into the left atrium. I started by isolating the left inferior pulmonary vein. This vein underwent a 4-minute, followed by 2-minute freeze. The vein isolated within 34 seconds of the first freeze. I then attempted to get into the left superior pulmonary vein. Again, as I mentioned, fluoroscopically, it was hard to determine, but I was able to visualize on ICE that I was in the left superior pulmonary vein and had very anterior course. I performed a 140 second freeze followed by a 2-minute freeze. The vein appeared isolated within 30-40 seconds of the first freeze. There was still evidence of left atrial appendage signals that were far field in nature. I then went to the right-sided veins, I performed phrenic nerve pacing with the decapolar catheter placed in the SVC. The right superior pulmonary vein underwent a single 190-second freeze as this vein isolated within 50 seconds and the temps were -55 degrees. I then turned my attention to the right inferior pulmonary vein. There was an upper branch and I performed a 3-minute freeze in this branch, which did not result in isolation. I then went to the lower branch and performed a 4-minute freeze, and the vein isolated within 90 seconds. Next, a repeat voltage map of the left atrium was created using the Lasso catheter and there was clear isolation of the 4 pulmonary veins. ATRIAL FLUTTER ABLATION: The patient was prepped for atrial flutter ablation. I created a detailed 3D geometry of the right atrium using a Lasso catheter. Then, I was able to put my decapolar back into the coronary sinus and I opened up an 8-mm ablation catheter, which I placed via a ramp sheath. Pre-ablation, the transisthmus conduction time was 50 milliseconds and then ablation was performed at 70 hair and 60 degrees. Of note, on intracardiac ultrasound, the patient had a very large eustachian ridge. I performed ablation along the proximal two thirds of the isthmus, but then I essentially had no contact along the posterior aspect due to this large ridge. I performed 2 lines and there was no evidence of bidirectional block. Therefore, I curved my ablation catheter around, so that I could lay the ablation catheter along the isthmus. I performed several ablation lesions using this maneuver and then I checked for block and there was evidence of bidirectional block with transisthmus conduction time of 170 milliseconds. As such, all veins were isolated and the patient had bidirectional block and the procedure was concluded. Using intracardiac ultrasound, I verified there was no pericardial effusion. The patient then received systemic protamine and once the ACT was within acceptable range, catheters and sheaths were pulled and hemostasis obtained. The patient awoke neurologically and hemodynamically intact. No complications and no significant [facility] [address] [place] [address] PROCEDURE REPORT Name: NURYS MEAD Room #: 200-I [facility] Kermit Wood#: [id number] Admission: 05/21/20 Attend Phys: Rocael Vitale MD Discharge: 05/22/20 Date of : 41 Report #: [id number] bleeding. CONCLUSIONS: 1. Successful atrial fibrillation ablation with isolation of pulmonary veins. 2. Successful atrial flutter ablation with very large eustachian ridge with evidence of bidirectional block. <ELECTRONICALLY SIGNED> By: Rocael Vitale MD 05/22/20 1558 [id number] Rocael Vitale MD /nt
== END 2020-05-22 11:00 | disposition home or self-care (01) ==
LOC: CATH → 2N 12:22 → CATH 12:49 → 2N 21:09
PROVIDERS: ADMIT Internal Medicine Cardiovascular Disease; ATTEND Internal Medicine Cardiovascular Disease
DX: Z03.818 Encounter for observation for suspected exposure to other biological agents ruled out (principal); I48.91 Unspecified atrial fibrillation; I48.92 Unspecified atrial flutter; I10 Essential (primary) hypertension; E78.5 Hyperlipidemia, unspecified; Z95.1 Presence of aortocoronary bypass graft
CPT/HCPCS: 62110; 62900; 70005

== ENCOUNTER → 2020-08-21 | Outpatient (CLI) | payer OTHER, MEDICARE | LOC: SJCVC 12:44 | PROVIDERS: ATTEND Internal Medicine Cardiovascular Disease | DX: R94.31 Abnormal electrocardiogram [ECG] [EKG] (principal); I48.0 Paroxysmal atrial fibrillation; I10 Essential (primary) hypertension; E78.5 Hyperlipidemia, unspecified; I25.2 Old myocardial infarction; Z79.899 Other long term (current) drug therapy ==

== ENCOUNTER → 2020-11-20 | Outpatient (CLI) | payer OTHER, MEDICARE | LOC: SJCVC 13:32 | PROVIDERS: ATTEND Internal Medicine Cardiovascular Disease | DX: I25.10 Atherosclerotic heart disease of native coronary artery without angina pectoris (principal); R94.31 Abnormal electrocardiogram [ECG] [EKG]; I48.0 Paroxysmal atrial fibrillation; E78.5 Hyperlipidemia, unspecified; I10 Essential (primary) hypertension; I25.5 Ischemic cardiomyopathy; Z95.1 Presence of aortocoronary bypass graft; Z79.82 Long term (current) use of aspirin; Z79.899 Other long term (current) drug therapy; Z87.891 Personal history of nicotine dependence ==

== ENCOUNTER → 2021-11-19 | Outpatient (CLI) | payer OTHER, MEDICARE | LOC: SJCVC 10:57 | PROVIDERS: ATTEND Internal Medicine Cardiovascular Disease | DX: R94.31 Abnormal electrocardiogram [ECG] [EKG] (principal); I25.10 Atherosclerotic heart disease of native coronary artery without angina pectoris; I48.0 Paroxysmal atrial fibrillation; E78.00 Pure hypercholesterolemia, unspecified; I25.2 Old myocardial infarction; I10 Essential (primary) hypertension; E78.5 Hyperlipidemia, unspecified; J44.9 Chronic obstructive pulmonary disease, unspecified; Z79.82 Long term (current) use of aspirin; Z79.899 Other long term (current) drug therapy; Z87.891 Personal history of nicotine dependence; Z95.818 Presence of other cardiac implants and grafts; Z95.1 Presence of aortocoronary bypass graft ==